=== PATIENT | male | born 1935 | race Caucasian/White ===

== ENCOUNTER 2019-03-06 09:13 | Observation (INO) | payer MEDICARE ==
[2019-03-06] MEDS ORDERED: ASPIRIN 81 MG PO STA (09:31)
[2019-03-06] MEDS ORDERED: NITROGLYCERIN OINT 1 INCH/GM PACKET TOPICAL STA (09:31)
--- NOTE | 2019-03-06 09:35 | ED ---
General Adult HPI - General Chief complaint: Chest Pain Stated complaint: Chest Pains Time Seen by Provider: 03/06/19 09:21 Source: patient, RN notes reviewed Mode of arrival: ambulatory Limitations: no limitations - History of Present Illness Initial comments: Patient is a pleasant 83-year-old male sitting to the emergency Department with complaints of this pressure. Patient had symptoms yesterday and again this morning. Discomfort was mild. Discomfort is left chest without radiation. No associated dyspnea or nausea or diaphoresis. No history of similar symptoms previously. No leg pain or swelling. - Related Data Home Medications Medication Instructions Recorded Confirmed Aspirin EC [Ecotrin Low Dose] 81 mg PO DAILY 03/06/19 03/06/19 Hydrochlorothiazide 25 mg PO DAILY 03/06/19 03/06/19 Metoprolol Tartrate [Lopressor] 50 mg PO BID 03/06/19 03/06/19 Olmesartan Medoxomil [Benicar] 40 mg PO DAILY 03/06/19 03/06/19 Omeprazole 20 mg PO DAILY 03/06/19 03/06/19 Pravastatin Sodium [Pravachol] 40 mg PO HS 03/06/19 03/06/19 Verapamil Sr [Isoptin Sr] 240 mg PO DAILY 03/06/19 03/06/19 Warfarin Sodium [Coumadin] 1.25 mg PO MOWEFR 03/06/19 03/06/19 Warfarin [Coumadin] 2.5 mg PO SUTUTHSA 03/06/19 03/06/19 sitaGLIPtin PHOS/metFORMIN HCL 1 tab PO BID 03/06/19 03/06/19 [Janumet 50-500 mg Tablet] Allergies Allergy/AdvReac Type Severity Reaction Status Date / Time No Known Allergies Allergy Verified 03/06/19 10:13 Review of Systems ROS Statement: Those systems with pertinent positive or pertinent negative responses have been documented in the HPI. ROS Other: All systems not noted in ROS Statement are negative. Constitutional: Denies: fever Eyes: Denies: eye pain ENT: Denies: ear pain Respiratory: Denies: cough, dyspnea Cardiovascular: Reports: chest pain Endocrine: Denies: fatigue Gastrointestinal: Denies: abdominal pain Genitourinary: Denies: dysuria Musculoskeletal: Denies: back pain Skin: Denies: rash Neurological: Denies: weakness Past Medical History Past Medical History: Coronary Artery Disease (CAD), Diabetes Mellitus, Hyperlipidemia, Hypertension History of Any Multi-Drug Resistant Organisms: None Reported Past Surgical History: Coronary Bypass/CABG Past Psychological History: No Psychological Hx Reported Smoking Status: Former smoker Past Alcohol Use History: Occasional Past Drug Use History: None Reported General Exam Limitations: no limitations General appearance: alert, in no apparent distress Head exam: Present: atraumatic Eye exam: Present: normal appearance, PERRL ENT exam: Present: normal oropharynx Neck exam: Present: normal inspection Respiratory exam: Present: normal lung sounds bilaterally. Absent: chest wall tenderness Cardiovascular Exam: Present: regular rate, irregular rhythm Expanded Peripheral pulses: 2+: Radial (R), Radial (L), Posterior Tibialis (R), Posterior Tibialis (L), Dorsalis Pedis (R), Dorsalis Pedis (L) GI/Abdominal exam: Present: soft. Absent: tenderness Extremities exam: Present: normal inspection. Absent: pedal edema, calf tenderness Neurological exam: Present: alert Psychiatric exam: Present: normal affect, normal mood Skin exam: Present: normal color Course Vital Signs 03/06/19 09:16 Temperature 97.5 F L Pulse Rate 56 L Respiratory 18 Rate Blood Pressure 188/84 O2 Sat by Pulse 99 Oximetry EKG Findings - EKG Comments: EKG Findings:: A. fib with rate of 76. QRS 108. QT 418. QTC 470. Left axis. Incomplete right bundle-branch block. No acute ST change. Medical Decision Making - Medical Decision Making Patient reevaluated and resting comfortably in bed. Patient and family updated on results and plan. Case was discussed in detail with Dr. Sheriff, who will admit covering for Dr. Doran. - Lab Data Result diagrams: 03/06/19 09:35 03/06/19 09:35 Lab Results 03/06/19 03/06/19 03/06/19 Range/Units 09:35 09:35 09:35 WBC 11.4 H (3.8-10.6) k/uL RBC 5.26 (4.30-5.90) m/uL Hgb 14.6 (13.0-17.5) gm/dL Hct 44.9 (39.0-53.0) % MCV 85.4 (80.0-100.0) fL MCH 27.8 (25.0-35.0) pg MCHC 32.6 (31.0-37.0) g/dL RDW 17.0 H (11.5-15.5) % Plt Count 252 (150-450) k/uL Neutrophils % 84 % Lymphocytes % 9 % Monocytes % 4 % Eosinophils % 1 % Basophils % 0 % Neutrophils # 9.6 H (1.3-7.7) k/uL Lymphocytes # 1.0 (1.0-4.8) k/uL Monocytes # 0.5 (0-1.0) k/uL Eosinophils # 0.1 (0-0.7) k/uL Basophils # 0.0 (0-0.2) k/uL Poikilocytosis Slight Anisocytosis Slight PT 39.5 H (9.0-12.0) sec INR 4.1 H (<1.2) APTT 38.7 H (22.0-30.0) sec Sodium 135 L (137-145) mmol/L Potassium 4.4 (3.5-5.1) mmol/L Chloride 99 (98-107) mmol/L Carbon Dioxide 23 (22-30) mmol/L Anion Gap 13 mmol/L BUN 22 H (9-20) mg/dL Creatinine 0.63 L (0.66-1.25) mg/dL Est GFR (CKD-EPI)AfAm >90 (>60 ml/min/1.73 sqM) Est GFR (CKD-EPI)NonAf >90 (>60 ml/min/1.73 sqM) Glucose 246 H (74-99) mg/dL Calcium 9.2 (8.4-10.2) mg/dL Magnesium 1.6 (1.6-2.3) mg/dL Total Bilirubin 1.2 (0.2-1.3) mg/dL AST 19 (17-59) U/L ALT 21 (21-72) U/L Alkaline Phosphatase 81 (38-126) U/L Creatine Kinase 24 L (55-170) U/L Troponin I (0.000-0.034) ng/mL Total Protein 7.7 (6.3-8.2) g/dL Albumin 4.3 (3.5-5.0) g/dL 03/06/19 Range/Units 09:35 WBC (3.8-10.6) k/uL RBC (4.30-5.90) m/uL Hgb (13.0-17.5) gm/dL Hct (39.0-53.0) % MCV (80.0-100.0) fL MCH (25.0-35.0) pg MCHC (31.0-37.0) g/dL RDW (11.5-15.5) % Plt Count (150-450) k/uL Neutrophils % % Lymphocytes % % Monocytes % % Eosinophils % % Basophils % % Neutrophils # (1.3-7.7) k/uL Lymphocytes # (1.0-4.8) k/uL Monocytes # (0-1.0) k/uL Eosinophils # (0-0.7) k/uL Basophils # (0-0.2) k/uL Poikilocytosis Anisocytosis PT (9.0-12.0) sec INR (<1.2) APTT (22.0-30.0) sec Sodium (137-145) mmol/L Potassium (3.5-5.1) mmol/L Chloride (98-107) mmol/L Carbon Dioxide (22-30) mmol/L Anion Gap mmol/L BUN (9-20) mg/dL Creatinine (0.66-1.25) mg/dL Est GFR (CKD-EPI)AfAm (>60 ml/min/1.73 sqM) Est GFR (CKD-EPI)NonAf (>60 ml/min/1.73 sqM) Glucose (74-99) mg/dL Calcium (8.4-10.2) mg/dL Magnesium (1.6-2.3) mg/dL Total Bilirubin (0.2-1.3) mg/dL AST (17-59) U/L ALT (21-72) U/L Alkaline Phosphatase (38-126) U/L Creatine Kinase (55-170) U/L Troponin I <0.012 (0.000-0.034) ng/mL Total Protein (6.3-8.2) g/dL Albumin (3.5-5.0) g/dL - Radiology Data Radiology results: image reviewed (Chest x-ray does show some COPD and cardiomegaly. Interstitial changes concerning for CHF. Pleural thickening.) Disposition Clinical Impression: Chest pain Disposition: ADMITTED IP TO THIS HOSP Is patient prescribed a controlled substance at d/c from ED?: No Referrals: Farrah Doran III, MD [Primary Care Provider] - 1-2 days Decision Time: 10:52
[2019-03-06 09:51] LABS: Anisocytosis Slight; Basophils % (A) 0 %; Eosinophils # (A) 0.1 k/uL (0-0.7); Eosinophils % (A) 1 %; HCT 44.9 % (39.0-53.0); HGB 14.6 gm/dL (13.0-17.5); Lymphocytes % (A) 9 %; MCH 27.8 pg (25.0-35.0); MCHC 32.6 g/dL (31.0-37.0); MCV 85.4 fL (80.0-100.0); Mean Platelet Volume 7.6; Monocytes # (A) 0.5 k/uL (0-1.0); Monocytes % (A) 4 %; Neutrophils # (A) 9.6 k/uL (1.3-7.7); Neutrophils % (A) 84 %; Platelet Count 252 k/uL (150-450); Poikilocytosis Slight; RBC 5.26 m/uL (4.30-5.90); WBC 11.4 k/uL (3.8-10.6)
[2019-03-06 10:00] LABS: INR 4.1 (<1.2); Partial Thromboplastin Time 38.7 sec (22.0-30.0); Prothrombin Time 39.5 sec (9.0-12.0)
[2019-03-06 10:01] LABS: ALT 21 U/L (21-72); AST 19 U/L (17-59); Albumin 4.3 g/dL (3.5-5.0); Alkaline Phosphatase 81 U/L (38-126); Anion Gap 13 mmol/L; Blood Urea Nitrogen 22 mg/dL (9-20); Calcium 9.2 mg/dL (8.4-10.2); Carbon Dioxide 23 mmol/L (22-30); Chloride 99 mmol/L (98-107); Creatine Kinase 24 U/L (55-170); Glucose 246 mg/dL (74-99); Magnesium 1.6 mg/dL (1.6-2.3); Potassium 4.4 mmol/L (3.5-5.1); Sodium 135 mmol/L (137-145); Total Bilirubin 1.2 mg/dL (0.2-1.3); Total Protein 7.7 g/dL (6.3-8.2)
--- NOTE | 2019-03-06 10:12 | XR ---
EXAMINATION TYPE: XR chest 2V DATE OF EXAM: 03/06/2019 COMPARISON: 11/10/2013 HISTORY: 83-year-old male with chest pain TECHNIQUE: PA and lateral views FINDINGS: Median sternotomy wires are present. Heart mildly enlarged. Hyperinflation with relative upper lung l ucencies. Mild interstitial prominence. Pleural thickening along the left lateral hemithorax. A more nodular areas present here as well. Yvonne B lines are demonstrated. Mild patchy left basilar opacity . IMPRESSION: 1. COPD and cardiomegaly. Interstitial changes are present with Yvonne B lines and pleural thickening , possible fluid along the left lateral hemithorax. Correlate for mild CHF as an etiology. 2. Follow-up after treatment to ensure clearance especially of the left lateral pleural-based thicken ing as some nodularity is also present here. If the finding persists, contrast-enhanced CT can be per formed.
[2019-03-06] MEDS ORDERED: NITROGLYCERIN SL TABS 0.4 MG TAB SUBLINGUAL PRN (10:52)
[2019-03-06] MEDS: NITROGLYCERIN OINT 1 INCH/GM PACKET TOPICAL SCH ×3 (13:04→23:24)
--- NOTE | 2019-03-06 13:25 | ECHOF ---
Referral Reason:Chest discomfort, CHF MEASUREMENTS -------- HEIGHT: 180.3 cm WEIGHT: 99.8 kg BP: RVIDd: 3.9 cm (< 3.3) IVSd: 1.4 cm (0.6 - 1.1) LVIDd: 4.5 cm (3.9 - 5.3) LVPWd: 1.6 cm (0.6 - 1.1) IVSs: 1.6 cm LVIDs: 3.0 cm LVPWs: 2.2 cm Ao Diam: 3.6 cm (2.0 - 3.7) AV Cusp: 1.7 cm (1.5 - 2.6) LA Diam: 4.6 cm (2.7 - 3.8) MV EXCURSION: 9.371 mm (> 18.000) MV EF SLOPE: 58 mm/s (70 - 150) EPSS: 1.5 cm MV E Jas: 1.46 m/s MV DecT: 214 ms MV A Jas: 0.36 m/s MV E/A Ratio: 4.11 RAP: 5.00 mmHg RVSP: 61.27 mmHg FINDINGS -------- Sinus rhythm. This was a technically difficult study with suboptimal views. The left ventricular size is normal. There is moderate concentric left ventricular hypertrophy. O verall left ventricular systolic function is normal with, an EF between 55 - 60 %. The right ventricle is mild to moderately enlarged. The left atrium is moderately dilated. The right atrium is moderately enlarged. Lumason used Aortic valve is trileaflet and is mildly thickened. There is mild aortic valve sclerosis. Peak/me an gradient across the Aortic Valve is {AV maxPG} / {AV meanPG}. The mitral valve leaflets are mildly thickened. Mild mitral annular calcification present. Mild m itral regurgitation is present. Moderate tricuspid regurgitation present. There is moderate pulmonary hypertension. The right sarah tricular systolic pressure, as measured by Doppler, is 61.27mmHg. There is no pulmonic regurgitation present. The aortic root size is normal. IVC Not well visulized. There is no pericardial effusion. CONCLUSIONS -------- 1. Sinus rhythm. 2. This was a technically difficult study with suboptimal views. 3. The left ventricular size is normal. 4. There is moderate concentric left ventricular hypertrophy. 5. Overall left ventricular systolic function is normal with, an EF between 55 - 60 %. 6. The right ventricle is mild to moderately enlarged. 7. The left atrium is moderately dilated. 8. The right atrium is moderately enlarged. 9. Lumason used 10. Aortic valve is trileaflet and is mildly thickened. 11. There is mild aortic valve sclerosis. 12. Peak/mean gradient across the Aortic Valve is {AV maxPG} / {AV meanPG}. 13. The mitral valve leaflets are mildly thickened. 14. Mild mitral annular calcification present. 15. Mild mitral regurgitation is present. 16. Moderate tricuspid regurgitation present. 17. There is moderate pulmonary hypertension. 18. The right ventricular systolic pressure, as measured by Doppler, is 61.27mmHg. 19. There is no pulmonic regurgitation present. 20. The aortic root size is normal. 21. IVC Not well visulized. 22. There is no pericardial effusion. COMPLETION MANAGER: Radha Guzmán RDCS
[2019-03-06] MEDS: VERAPAMIL SR 240 MG TABLET.ER PO SCH (15:55)
[2019-03-06] MEDS: HYDROCHLOROTHIAZIDE 25 MG TAB PO SCH (15:55)
--- NOTE | 2019-03-06 15:58 | P.HPIM ---
History of Present Illness Chief Complaint: Chest pressure Very pleasant 83-year-old gentleman with a past medical history significant for A. fib on Coumadin comes in with above-mentioned complaints. The patient says that he's been having chest pressure since yesterday. He said that he lifted window and felt chest pressure since then. He does not complain of any radiation, no shortness of breath, no cough, no abdominal pain, no nausea and vomiting, no diarrhea constipation, no tingling numbness on in the extremities, and additional rest. Patient does not complain of any fever or chills, no headache, loss of vision or blurry vision. ER course-patient's blood pressure was 202/81 temperature 97.7 pulse 74 respiration 18 satting 93%. WBC 11.4 hemoglobin 14.6 platelets 252 sodium 134 potassium 4.4 bun 22 creatinine 0.63 troponin 0.012. Patient was admitted to the hospitalist service for further evaluation and management of his chest pain. 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 History of Any Multi-Drug Resistant Organisms: None Reported Past Surgical History: Coronary Bypass/CABG, Heart Catheterization, Hernia R epair Additional Past Surgical History / Comment(s): 12/23/07 CABG 4 vessel, thoracentesis x 4 after CABG, DIGNA, EGD, colonoscopies with benign polypectomy, L leg varicose vein stripping, sinus surgery, bilateral inguinal hernia repairs, R ankle with plate/screws. Past Anesthesia/Blood Transfusion Reactions: No Reported Reaction Smoking Status: Former smoker - Past Family History Father Family Medical History: Cancer Additional Family Medical History / Comment(s): Lymphoma Mother Family Medical History: Myocardial Infarction ([place]) Additional Family Medical History / Comment(s): Mother had heart problems and a [place]. She lived to be 83 yrs old. Medications and Allergies Home Medications Medication Instructions Recorded Confirmed Type Aspirin EC [Ecotrin Low Dose] 81 mg PO DAILY 03/06/19 03/06/19 History Hydrochlorothiazide 25 mg PO DAILY 03/06/19 03/06/19 History Metoprolol Tartrate [Lopressor] 50 mg PO BID 03/06/19 03/06/19 History Olmesartan Medoxomil [Benicar] 40 mg PO DAILY 03/06/19 03/06/19 History Omeprazole 20 mg PO DAILY 03/06/19 03/06/19 History Pravastatin Sodium [Pravachol] 40 mg PO HS 03/06/19 03/06/19 History Verapamil Sr [Isoptin Sr] 240 mg PO DAILY 03/06/19 03/06/19 History Warfarin Sodium [Coumadin] 1.25 mg PO MOWEFR 03/06/19 03/06/19 History Warfarin [Coumadin] 2.5 mg PO SUTUTHSA 03/06/19 03/06/19 History sitaGLIPtin PHOS/metFORMIN HCL 1 tab PO BID 03/06/19 03/06/19 History [Janumet 50-500 mg Tablet] Allergies Allergy/AdvReac Type Severity Reaction Status Date / Time No Known Allergies Allergy Verified 03/06/19 10:13 Physical Exam Vitals: Vital Signs Temp Pulse Pulse Resp BP BP Pulse Ox 03/06/19 14:47 97.7 F 70 18 202/81 93 L 03/06/19 13:55 74 20 182/90 96 03/06/19 13:04 64 20 183/52 95 03/06/19 12:00 20 03/06/19 11:57 87 20 186/89 98 03/06/19 09:16 97.5 F L 56 L 18 188/84 99 Intake and Output 03/06/19 03/06/19 03/06/19 06:59 14:59 22:59 Other: Voiding Method Toilet # Voids 1 Weight 99.79 kg On exam, alert and oriented x3. HEENT: Conjunctivae normal. eyes normal. NECK: No JVD. No thyroid enlargement. No LNs CARDIOVASCULAR: S1-S2 positive RESPIRATION: Breath sounds diminished in the bases. No rhonchi or crackles. No bronchial breathing. ABDOMEN: Soft, nontender . No guarding. no masses palpable. No ascites, No hepatosplenomegaly.Bowel sounds heard. LEGS: No edema. no swelling NERVOUS SYSTEM: Cranial N 2-12 grossly normal. Moves all 4 limbs. No focal deficits. No sensory deficit. No signs of cerebellar dysfucntion. Skin: no ulcer no rash Results CBC & Chem 7: 03/06/19 09:35 03/06/19 09:35 Labs: Abnormal Lab Results - Last 24 Hours (Table) 03/06/19 03/06/19 03/06/19 Range/Units 09:35 09:35 09:35 WBC 11.4 H (3.8-10.6) k/uL RDW 17.0 H (11.5-15.5) % Neutrophils # 9.6 H (1.3-7.7) k/uL PT 39.5 H (9.0-12.0) sec INR 4.1 H (<1.2) APTT 38.7 H (22.0-30.0) sec Sodium 135 L (137-145) mmol/L BUN 22 H (9-20) mg/dL Creatinine 0.63 L (0.66-1.25) mg/dL Glucose 246 H (74-99) mg/dL Creatine Kinase 24 L (55-170) U/L Thrombosis Risk Factor Assmnt - Choose All That Apply Any of the Below Risk Factors Present?: Yes Each Factor Represents 1 point: Obesity (BMI >25) Other Risk Factors: Yes Each Risk Factor Represents 3 Points: Age 75 years or older Other congenital or acquired thrombophilia - If yes, enter type in comment: No Thrombosis Risk Factor Assessment Total Risk Factor Score: 4 Thrombosis Risk Factor Assessment Level: Moderate Risk Assessment and Plan Assessment: - Chest pain need to rule out the cause - History of CAD status post CABG - Accelerated hypertension - A. fib on Coumadin - History of hypertension - History of hyperlipidemia - History of diabetes plan - Patient is admitted to observation - We'll monitor troponin level - Cardiology is consulted - We'll resume patient's home medications - Patient blood pressure was elevated on in the ER. We'll give him his medication and see how he does - DVT and GI prophylaxis - We'll order for lab work in the morning - Patient is in observation - Patient wants to be full code
[2019-03-06 17:00] LABS: Glucose,Whole Blood 165 mg/dL (75-99)
[2019-03-06] MEDS: INSULIN ASPART (NovoLOG) 100 UNIT/ML VIAL SQ SCH ×2 (17:16→21:09)
[2019-03-06 20:51] LABS: Glucose,Whole Blood 172 mg/dL (75-99)
[2019-03-06] MEDS: PRAVASTATIN SODIUM 40 MG TAB PO SCH (21:08)
[2019-03-06] MEDS: METOPROLOL TARTRATE 50 MG TAB PO SCH (21:09)
[2019-03-07] MEDS: NITROGLYCERIN OINT 1 INCH/GM PACKET TOPICAL SCH (03:56)
[2019-03-07 06:15] LABS: Anisocytosis Slight; HCT 42.7 % (39.0-53.0); HGB 13.9 gm/dL (13.0-17.5); MCH 27.5 pg (25.0-35.0); MCHC 32.4 g/dL (31.0-37.0); MCV 84.7 fL (80.0-100.0); Mean Platelet Volume 7.7; Platelet Count 210 k/uL (150-450); Poikilocytosis Slight; RBC 5.04 m/uL (4.30-5.90); RDW 16.4 % (11.5-15.5); WBC 8.2 k/uL (3.8-10.6)
[2019-03-07 06:23] LABS: Calcium 9.6 mg/dL (8.4-10.2)
[2019-03-07 06:34] LABS: Glucose,Whole Blood 180 mg/dL (75-99)
[2019-03-07] MEDS: METOPROLOL TARTRATE 50 MG TAB PO SCH (08:12)
[2019-03-07] MEDS: INSULIN ASPART (NovoLOG) 100 UNIT/ML VIAL SQ SCH ×4 (08:13→21:33)
[2019-03-07] MEDS: VERAPAMIL SR 240 MG TABLET.ER PO SCH (08:13)
[2019-03-07] MEDS: HYDROCHLOROTHIAZIDE 25 MG TAB PO SCH (08:13)
[2019-03-07] MEDS: ASPIRIN 81 MG PO SCH (08:13)
[2019-03-07] MEDS: LOSARTAN 50 MG TAB PO SCH (08:13)
[2019-03-07] MEDS: PANTOPRAZOLE 40 MG TABLET PO SCH (08:13)
[2019-03-07] MEDS ORDERED: FUROSEMIDE 10 MG/ML 2 ML VIAL IV STA (08:56)
[2019-03-07] MEDS ORDERED: ASPIRIN 325 MG TAB PO SCH (09:00)
--- NOTE | 2019-03-07 10:11 | P.PN ---
Subjective Very pleasant 83-year-old gentleman comes in with complaints of chest pressure. His chest pressure is gone now. Blood pressure elevated while in observation. Cardiology on board. Following the patient. On 03/07/2019 Patient says that his chest pain is no more. He does not complain of any shortness of breath or cough There is no evidence of any swelling Patient blood pressure remains to be high Objective - Vital Signs Vital signs: Vital Signs Temp 97.6 F 03/07/19 07:00 Pulse 60 03/07/19 09:32 Resp 18 03/07/19 07:00 BP 160/80 03/07/19 09:32 Pulse Ox 98 03/07/19 09:32 Intake & Output 03/06/19 03/07/19 03/07/19 18:59 06:59 18:59 Intake Total 300 Balance 300 Weight 99.79 kg Intake: Other 300 Other: Voiding Method Toilet Toilet # Voids 1 1 - Exam On exam, alert and oriented x3. HEENT: Conjunctivae normal. eyes normal. NECK: No JVD. No thyroid enlargement. No LNs CARDIOVASCULAR: S1, S2 positive RESPIRATION: Breath sounds diminished in the bases. No rhonchi or crackles. No bronchial breathing. ABDOMEN: Soft, nontender . No guarding. no masses palpable. No ascites, No hepatosplenomegaly.Bowel sounds heard. LEGS: No edema. no swelling NERVOUS SYSTEM: Cranial N 2-12 grossly normal. Moves all 4 limbs. No focal deficits. No sensory deficit. No signs of cerebellar dysfucntion. Skin: no ulcer no rash - Labs CBC & Chem 7: 03/07/19 05:57 03/07/19 05:57 Labs: Abnormal Lab Results - Last 24 Hours (Table) 03/06/19 03/06/19 03/07/19 Range/Units 16:31 20:23 05:57 RDW (11.5-15.5) % Sodium 136 L (137-145) mmol/L Chloride 97 L (98-107) mmol/L Carbon Dioxide 31 H (22-30) mmol/L BUN 27 H (9-20) mg/dL Glucose 177 H (74-99) mg/dL POC Glucose (mg/dL) 165 H 172 H (75-99) mg/dL 03/07/19 03/07/19 Range/Units 05:57 06:32 RDW 16.4 H (11.5-15.5) % Sodium (137-145) mmol/L Chloride (98-107) mmol/L Carbon Dioxide (22-30) mmol/L BUN (9-20) mg/dL Glucose (74-99) mg/dL POC Glucose (mg/dL) 180 H (75-99) mg/dL Assessment and Plan Assessment: - Chest pain need to rule out the cause - History of CAD status post CABG - Accelerated hypertension - A. fib on Coumadin - History of hypertension - History of hyperlipidemia - History of diabetes plan - We'll give next dose of Lasix this morning. Chest x-ray done yesterday showed left pleural effusion and also showed concerns for nodularity. This suggested to follow-up on the pleural effusion. If the nodularity still persists patient would need to be followed up with a CAT scan. So the plan is to give him Lasix for a day. We'll repeat the chest x-ray tomorrow. If the chest x-ray shows shows nodularity patient might need a computed tomography scan either inpatient or outpatient. If his blood pressures is under control, he might be discharged and he can follow up with his primary care doctor for a computed tomography scan as an outpatient. - We'll continue medications for now. Cozaar increased by cardiology - Patient is admitted to observation - We'll continue to monitor Time with Patient: Greater than 30
[2019-03-07 10:37] LABS: INR 2.8 (<1.2); Prothrombin Time 27.2 sec (9.0-12.0)
[2019-03-07 11:45] LABS: Glucose,Whole Blood 248 mg/dL (75-99)
--- NOTE | 2019-03-07 13:04 | P.CRDCN ---
History of Present Illness History of present illness: This is a pleasant 83 year old male past medical history significant for coronary artery disease s/p bypass grafting in 2007 with a CAMACHO to LAD, SVG to diagonal, SVG to PLV and SVG to PDA branch of the RCA, chronic persistent atrial fibrillation on termite control service representative anti-coagulation, hypertension, dyslipidemia and diabetes mellitus. He follows with Dr. Hines in the office. We have been asked to see him in consultation for chest pain. He states for the last 2 days intermittently he has noticed a pain in the chest in the precordial region that feels like a pin prick sensation that improves when he presses his finger on the area. He was doing some window work changing out the storm windows at his home just before he felt this for the first time. He felt like he pulled a muscle. Th ere was no radiation to the arm, back, neck or jaw. He denies associated shortness of breath, dizziness, nausea, vomiting, palpitations or diaphoresis. The patient and his were scheduled to head [place] for however due to his history he wanted to be evaluated prior to making that trip. He is seen and examined resting comfortably in bed with his and daughter at the bedside. He denies any further symptoms of chest discomfort. Since arriving in the emergency department his blood pressure has been quite elevated, 197/75, 202/81. Telemetry tracings reviewed and reveal he is having significant bradycardia night while sleeping. EKG reveals atrial fibrillation heart rate of 76, incomplete right bundle branch block and nonspecific ST abnormalities in the precordial leads. Chest x-ray reveals COPD and cardiomegaly, interstitial changes present with curly B lines and pleural thickening with possible fluid accumulation along the left lateral hemithorax. Echocardiogram obtained in the emergency department reveals moderate concentric left ventricular hypertrophy, preserved left ventricular systolic function with ejection fraction 55-60%, mild aortic valve sclerosis, mild mitral regurgitation, moderate tricuspid regurgitation and moderate pulmonary hypertension with an RVSP of 61 mmHg Laboratory data reviewed, WBC on admission 11.4 repeat today 8.2, hemoglobin 13.9, platelets 210, INR 2.8, cardiac enzymes negative 3, sodium 136, potassium 4.0, creatinine 0.95, LDL 45, HDL 44, gently proBNP 966, magnesium 1.6. Current cardiac medications include aspirin 81 mg daily, hydrochlorothiazide 25 mg daily, Lopressor 50 mg twice a day, olmesartan 40 mg daily, pravastatin 40 mg daily, verapamil 240 mg daily and Coumadin. Most recent stress test performed in the office was a nuclear perfusion study revealed no evidence of reversible cardiac ischemia. At the time of my exam: CONSTITUTIONAL: Denies fever. Denies chills. EYES: Denies blurred vision. Denies vision changes. Denies eye pain. EARS, NOSE, MOUTH & THROAT: Denies headache. Denies sore throat. Denies ear pa in. CARDIOVASCULAR: Denies chest pain. Denies shortness of breath. Denies orthopnea. Denies PND. Denies palpitations. RESPIRATORY: Denies cough. GASTROINTESTINAL: Denies abdominal pain. Denies diarrhea. Denies constipation. Denies nausea. Denies vomiting. MUSCULOSKELETAL: Denies myalgias. INTEGUMENTARY: Denies pruitis. Denies rash. NEUROLOGIC: Denies numbness. Denies tingling. Denies weakness. PSYCHIATRIC: Denies anxiety. Denies depression. ENDOCRINE: Denies fatigue. Denies weight change. Denies polydipsia. Denies polyurina. GENITOURINARY: Denies burning, hematuria or urgency with micturation. HEMATOLOGIC: Denies history of anemia. Denies bleeding. Blood pressure 197/75 heart rate 68 afebrile maintaining oxygen saturation on room air GENERAL: This is a 83-year-old male in no apparent distress at the time of my examination. HEENT: Head is atraumatic, normocephalic. Pupils are equal, round. Sclerae anicteric. Conjunctivae are clear. Mucous membranes of the mouth are moist. Neck is supple. There is no jugular venous distention. Bilateral carotid bruit is heard, left greater than right. LUNGS: Clear to auscultation no wheezes, rales or rhonchi. No chest wall tenderness is noted on palpation or with deep breathing. HEART: Irregular rate and rhythm with systolic ejection murmur at the base, no rubs or gallops. S1 and S2 heard. ABDOMEN: Soft, nontender. Bowel sounds are heard. No organomegaly noted. EXTREMITIES: No evidence of peripheral edema and no calf tenderness noted. VASCULAR: Radial and dorsalis pedis pulses palpated, no evidence of clubbing. NEUROLOGIC: Patient is awake, alert and oriented x3. ASSESSMENT Chest pain, atypical for angina. An acute coronary event has been ruled out. Most likely related to musckuloskeletal strain. Recommend outpatient stress testing with Dr. Hines if reoccurrence of chest pain. Hypertension, uncontrolled History of coronary artery disease status post bypass grafting Chronic persistent atrial fibrillation on long-term anticoagulation Dyslipidemia Diabetes mellitus Bradycardia at night, asymptomatic PLAN An acute coronary event has been ruled out. Echocardiogram reviewed. Overall stable with no suggestion of unstable angina. Outpatient stress testing with Dr. Hines. Discontinue verapamil and initiate on amlodipine 10 mg daily. Increase lopressor to 75 mg BID. Initiate on hydralazine 25 mg BID, this can be increased as needed for ongoing elevated blood pressures. Continue coumadin, aspirin, hydrocholorthiazide and pravastatin as previously ordered. Clinically he is euvolemic on exam despite chest xray findings. Repeat chest xray in the am. Thank you kindly for this consultation. Nurse Practitioner note has been reviewed, I agree with a documented findings and plan of care. Patient was seen and examined. 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 History of Any Multi-Drug Resistant Organisms: None Reported Past Surgical History: Coronary Bypass/CABG, Heart Catheterization, Hernia Repair Additional Past Surgical History / Comment(s): 12/23/07 CABG 4 vessel, thorace ntesis x 4 after CABG, DIGNA, EGD, colonoscopies with benign polypectomy, L leg varicose vein stripping, sinus surgery, bilateral inguinal hernia repairs, R ankle with plate/screws. Past Anesthesia/Blood Transfusion Reactions: No Reported Reaction Smoking Status: Former smoker - Past Family History Father Family Medical History: Cancer Additional Family Medical History / Comment(s): Lymphoma Mother Family Medical History: Myocardial Infarction (OR) Additional Family Medical History / Comment(s): Mother had heart problems and a OR. She lived to be 83 yrs old. Medications and Allergies Home Medications Medication Instructions Recorded Confirmed Type Aspirin EC [Ecotrin Low Dose] 81 mg PO DAILY 03/06/19 03/06/19 History Hydrochlorothiazide 25 mg PO DAILY 03/06/19 03/06/19 History Metoprolol Tartrate [Lopressor] 50 mg PO BID 03/06/19 03/06/19 History Olmesartan Medoxomil [Benicar] 40 mg PO DAILY 03/06/19 03/06/19 History Omeprazole 20 mg PO DAILY 03/06/19 03/06/19 History Pravastatin Sodium [Pravachol] 40 mg PO HS 03/06/19 03/06/19 History Verapamil Sr [Isoptin Sr] 240 mg PO DAILY 03/06/19 03/06/19 History Warfarin Sodium [Coumadin] 1.25 mg PO MOWEFR 03/06/19 03/06/19 History Warfarin [Coumadin] 2.5 mg PO SUTUTHSA 03/06/19 03/06/19 History sitaGLIPtin PHOS/metFORMIN HCL 1 tab PO BID 03/06/19 03/06/19 History [Janumet 50-500 mg Tablet] Allergies Allergy/AdvReac Type Severity Reaction Status Date / Time No Known Allergies Allergy Verified 03/06/19 10:13 Physical Exam Vitals: Vital Signs Temp Pulse Pulse Pulse Resp BP BP 03/07/19 11:15 97.7 F 63 18 03/07/19 09:32 60 160/80 03/07/19 08:18 197/75 03/07/19 07:00 97.6 F 57 L 18 03/07/19 03:54 98.2 F 50 L 18 142/62 03/07/19 03:31 16 03/06/19 23:55 98.2 F 50 L 16 119/59 03/06/19 23:21 16 03/06/19 20:00 16 03/06/19 19:37 97.8 F 53 L 16 166/71 03/06/19 16:00 70 18 03/06/19 14:47 97.7 F 70 18 202/81 03/06/19 13:55 74 20 182/90 03/06/19 13:04 64 20 183/52 BP Pulse Ox 03/07/19 11:15 149/60 93 L 03/07/19 09:32 98 03/07/19 08:18 92 L 03/07/19 07:00 208/78 92 L 03/07/19 03:54 92 L 03/07/19 03:31 03/06/19 23:55 91 L 03/06/19 23:21 03/06/19 20:00 03/06/19 19:37 91 L 03/06/19 16:00 03/06/19 14:47 93 L 03/06/19 13:55 96 03/06/19 13:04 95 Intake and Output 03/06/19 03/07/19 03/07/19 22:59 06:59 14:59 Intake Total 300 200 Balance 300 200 Intake: Other 300 200 Other: Voiding Method Toilet Toilet Toilet # Voids 1 Results 03/07/19 05:57 03/07/19 05:57 Cardiac Enzymes 03/06/19 03/06/19 Range/Units 16:02 21:20 Troponin I <0.012 <0.012 (0.000-0.034) ng/mL Coagulation 03/07/19 Range/Units 09:43 PT 27.2 H (9.0-12.0) sec Lipids 03/07/19 Range/Units 05:57 Triglycerides 107 (<150) mg/dL Cholesterol 110 (<200) mg/dL HDL Cholesterol 44 (40-60) mg/dL CBC 03/07/19 Range/Units 05:57 WBC 8.2 (3.8-10.6) k/uL RBC 5.04 (4.30-5.90) m/uL Hgb 13.9 (13.0-17.5) gm/dL Hct 42.7 (39.0-53.0) % Plt Count 210 (150-450) k/uL Comprehensive Metabolic Panel 03/07/19 Range/Units 05:57 Sodium 136 L (137-145) mmol/L Potassium 4.0 (3.5-5.1) mmol/L Chloride 97 L (98-107) mmol/L Carbon Dioxide 31 H (22-30) mmol/L BUN 27 H (9-20) mg/dL Creatinine 0.95 (0.66-1.25) mg/dL Glucose 177 H (74-99) mg/dL Calcium 9.6 (8.4-10.2) mg/dL Current Medications Generic Name Dose Route Start Last Admin Trade Name Freq PRN Reason Stop Dose Admin Amlodipine Besylate 10 mg 03/07/19 21:00 Norvasc PO HS YAEL Aspirin 81 mg 03/07/19 09:00 03/07/19 08:13 Aspirin PO 81 mg DAILY YAEL Administration Hydralazine HCl 25 mg 03/07/19 21:00 Apresoline PO BID [facility] Hydrochlorothiazide 25 mg 03/06/19 15:15 03/07/19 08:13 Hydrodiuril PO 25 mg DAILY [facility] Administration Insulin Aspart 0 unit 03/06/19 17:30 03/07/19 08:13 Novolog SQ 2 unit ACHS [facility] Administration Protocol Losartan Potassium 150 mg 03/07/19 09:00 03/07/19 08:13 Cozaar PO 150 mg DAILY [facility] Administration Metoprolol Tartrate 75 mg 03/07/19 21:00 Lopressor PO BID [facility] Nitroglycerin 0.4 mg 03/06/19 10:52 Nitrostat SUBLINGUAL Q5M PRN Chest Pain Pantoprazole Sodium 40 mg 03/07/19 07:30 03/07/19 08:13 Protonix PO 40 mg [id number] [facility] Administration Pravastatin Sodium 40 mg 03/06/19 21:00 03/06/19 21:08 Pravachol PO 40 mg HS [facility] Administration Warfarin Sodium 2.5 mg 03/08/19 18:00 Coumadin PO SUTUTHSA [facility] Warfarin Sodium 1.25 mg 03/07/19 18:00 Coumadin PO MOWEFR [facility] Intake and Output 03/06/19 03/07/19 03/07/19 22:59 06:59 14:59 Intake Total 300 200 Balance 300 200 Intake: Other 300 200 Other: Voiding Method Toilet Toilet Toilet # Voids 1 03/07/19 05:57 03/07/19 05:57
[2019-03-07 16:56] LABS: Glucose,Whole Blood 183 mg/dL (75-99)
[2019-03-07] MEDS ORDERED: WARFARIN 1.25 MG TAB PO SCH (18:00)
[2019-03-07] MEDS ORDERED: amLODIPine 10 MG TAB PO SCH (21:00)
[2019-03-07 21:04] LABS: Glucose,Whole Blood 256 mg/dL (75-99)
[2019-03-07] MEDS: PRAVASTATIN SODIUM 40 MG TAB PO SCH (21:33)
[2019-03-07] MEDS: hydrALAZINE HCL 25 MG TAB PO SCH (21:33)
[2019-03-07] MEDS: METOPROLOL TARTRATE 25 MG TAB PO SCH (21:33)
[2019-03-08 06:22] LABS: INR 2.4 (<1.2); Prothrombin Time 23.1 sec (9.0-12.0)
[2019-03-08 06:59] LABS: Glucose,Whole Blood 177 mg/dL (75-99)
--- NOTE | 2019-03-08 08:40 | PN ---
PROGRESS NOTE Mr. Kincaid is an 83-year-old male who follows on a regular basis with Dr. Hines, has a history of chronic persistent atrial fibrillation, history of coronary artery disease status post coronary artery bypass grafting who presented with symptoms of chest discomfort. He has feeling well since his admission. He has no further symptoms of chest pain. He has been ambulating without any difficulty. He denies any dizziness or palpitation. He denies any nausea. He continues to be at this time on amlodipine 10 mg daily, aspirin 81 mg daily, hydralazine 25 mg twice a day, hydrochlorothiazide 25 mg daily, insulin, losartan 150 mg daily, metoprolol tartrate 75 mg twice a day, Protonix, pravastatin, and Coumadin. PHYSICAL EXAMINATION: Blood pressure 132/70 with a heart in 50s. HEAD: Normocephalic. Eyes sclerae anicteric. NECK: Good upstroke. No jugular venous distention. CARDIOVASCULAR: Heart irregularly irregular S1, S2. No S3. No rub. No gallop. ABDOMEN: Soft, nontender. Positive bowel sounds. No organomegaly. EXTREMITIES: No edema. Intact distal pulses. LAB DATA: INR of 2.4. IMPRESSION: 1. Chest discomfort atypical for ischemic heart disease probably noncardiac. 2. Status post coronary artery bypass grafting. 3. Chronic persistent atrial fibrillation. RECOMMENDATIONS: Patient underwent an echocardiogram yesterday that revealed a preserved systolic function with moderate tricuspid regurgitation, mild mitral regurgitation. From the cardiac standpoint, he should be able to be discharged home today and follow as an outpatient with Dr. Hines. MMODL / IJN: [id number] /
[2019-03-08] MEDS: hydrALAZINE HCL 25 MG TAB PO SCH (09:15)
[2019-03-08] MEDS: LOSARTAN 50 MG TAB PO SCH (09:16)
[2019-03-08] MEDS: ASPIRIN 81 MG PO SCH (09:16)
[2019-03-08] MEDS: PANTOPRAZOLE 40 MG TABLET PO SCH (09:16)
[2019-03-08] MEDS: METOPROLOL TARTRATE 25 MG TAB PO SCH (09:17)
[2019-03-08] MEDS: INSULIN ASPART (NovoLOG) 100 UNIT/ML VIAL SQ SCH ×2 (09:18→12:08)
[2019-03-08] MEDS: HYDROCHLOROTHIAZIDE 25 MG TAB PO SCH (09:18)
--- NOTE | 2019-03-08 10:17 | XR ---
EXAMINATION TYPE: XR chest 2V DATE OF EXAM: 03/08/2019 HISTORY: Left pleural effusion. REFERENCE: Previous study dated 03/06/2019. FINDINGS: There has been a midline sternotomy. The lungs are overinflated. The heart is mildly enlarged. Interstitial change has improved. There con tinues be pleural thickening present on the left. I could not exclude a small left effusion. IMPRESSION: 1. COPD. 2. CARDIOMEGALY. 3. IMPROVING CHANGES OF HEART FAILURE. 4. PERSISTENT PLEURAL THICKENING ON THE LEFT.
[2019-03-08 11:40] LABS: Glucose,Whole Blood 203 mg/dL (75-99)
[2019-03-08 12:48] VITALS: RESP 18
[2019-03-08 16:27] VITALS: BP 178/73; PULSE 59; TEMP 97.6
[2019-03-08 16:46] LABS: Glucose,Whole Blood 176 mg/dL (75-99)
--- NOTE | 2019-03-08 16:47 | P.DS ---
Providers Date of admission: 03/06/19 10:52 Attending physician: Rashid Canchola MD Consults: 03/06/19 10:52 Consult Physician Urgent Consulting Provider: Alec Leroy Consult Reason/Comments: cp, eval for chf Do you want consulting provider notified?: Yes Primary care physician: Farrah Doran [facility] Course: Patient was admitted for chest pain and ruled out acute current syndromes patient chest pain, patient's chest pain was muscular skeletal. Patient was evaluated by cardiology that cleared for discharge. Multiple medication changes were made. Patient blood pressure is high because of which a patient was started on amlodipine as well as hydralazine, patient will be discharged on amlodipine not hydralazine as multiple medication changes at the same time can lead to hypotension which can lead to stroke or acute renal failure. Patient has elevated INR on admission and patient is taking 2.5 mg 4 days a week and 1.25 mg 3 days in a week. Patient most probably will need 1.5 mg daily patient will be discharged on 1.5 mg of Coumadin with INR check on Sunday when he sees Dr. Doran in his clinic. Patient's verapamil was discontinued and patient is on beta aníbal dose of which was increased to 75 mg. Patient has a pleural thickening for which patient will need outpatient follow- up per CAT scan patient will be referred to Dr. Pablo as an outpatient. PHYSICAL EXAMINATION: GENERAL: The patient is alert and oriented x3, not in any acute distress. Well developed, well nourished. HEENT: Pupils are round and equally reacting to light. EOMI. No scleral icterus. No conjunctival pallor. Normocephalic, atraumatic. No pharyngeal erythema. No thyromegaly. CARDIOVASCULAR: S1 and S2 present. No murmurs, rubs, or gallops. PULMONARY: Chest is clear to auscultation, no wheezing or crackles. ABDOMEN: Soft, nontender, nondistended, normoactive bowel sounds. No palpable organomegaly. MUSCULOSKELETAL: No joint swelling or deformity. EXTREMITIES: No cyanosis, clubbing, or pedal edema. NEUROLOGICAL: Gross neurological examination did not reveal any focal deficits. SKIN: No rashes. Please refer to dictation progress note from Dr. Canchola for further details of hospitalization course and other medical problems that were addressed during this hospitalization Plan - Discharge Summary Discharge Rx Participant: No New Discharge Prescriptions: New Warfarin [Coumadin] 1.5 mg PO DAILY #30 dose Metoprolol Tartrate [Lopressor] 75 mg PO BID #60 tab amLODIPine [Norvasc] 10 mg PO HS #30 tab Continue Pravastatin Sodium [Pravachol] 40 mg PO HS Omeprazole 20 mg PO DAILY Olmesartan Medoxomil [Benicar] 40 mg PO DAILY Hydrochlorothiazide 25 mg PO DAILY sitaGLIPtin PHOS/metFORMIN HCL [Janumet 50-500 mg Tablet] 1 tab PO BID Aspirin EC [Ecotrin Low Dose] 81 mg PO DAILY Discontinued Warfarin [Coumadin] 2.5 mg PO SUTUTHSA Verapamil Sr [Isoptin Sr] 240 mg PO DAILY Metoprolol Tartrate [Lopressor] 50 mg PO BID Warfarin Sodium [Coumadin] 1.25 mg PO MOWEFR Discharge Medication List Aspirin EC [Ecotrin Low Dose] 81 mg PO DAILY 03/06/19 [History] Hydrochlorothiazide 25 mg PO DAILY 03/06/19 [History] Olmesartan Medoxomil [Benicar] 40 mg PO DAILY 03/06/19 [History] Omeprazole 20 mg PO DAILY 03/06/19 [History] Pravastatin Sodium [Pravachol] 40 mg PO HS 03/06/19 [History] sitaGLIPtin PHOS/metFORMIN HCL [Janumet 50-500 mg Tablet] 1 tab PO BID 03/06/19 [History] Metoprolol Tartrate [Lopressor] 75 mg PO BID #60 tab 03/08/19 [Rx] Warfarin [Coumadin] 1.5 mg PO DAILY #30 dose 03/08/19 [Rx] amLODIPine [Norvasc] 10 mg PO HS #30 tab 03/08/19 [Rx] Follow up Appointment(s)/Referral(s): Angy Hines MD [STAFF PHYSICIAN] - 03/14/19 3:15 pm Farrah Doran III, MD [Primary Care Provider] - 3 Days Dashawn Da Silva MD [STAFF PHYSICIAN] - 1 Week Discharge Disposition: HOME SELF-CARE
[2019-03-08] MEDS ORDERED: WARFARIN 2.5 MG TAB PO SCH (18:00)
== END 2019-03-08 17:10 | disposition home or self-care (01) ==
LOC: EC 09:13 → 1SOBS 10:52
PROVIDERS: ADMIT Internal Medicine; ATTEND Internal Medicine
DX: R07.89 Other chest pain (principal); I11.9 Hypertensive heart disease without heart failure; I45.10 Unspecified right bundle-branch block; I27.20 Pulmonary hypertension, unspecified; R79.1 Abnormal coagulation profile; R00.1 Bradycardia, unspecified; I48.2 Chronic atrial fibrillation; I48.1 Persistent atrial fibrillation; J90 Pleural effusion, not elsewhere classified; I25.10 Atherosclerotic heart disease of native coronary artery without angina pectoris; E11.9 Type 2 diabetes mellitus without complications; E78.5 Hyperlipidemia, unspecified; I08.3 Combined rheumatic disorders of mitral, aortic and tricuspid valves; J44.9 Chronic obstructive pulmonary disease, unspecified; R13.10 Dysphagia, unspecified; M54.41 Lumbago with sciatica, right side; H93.19 Tinnitus, unspecified ear; E66.9 Obesity, unspecified; Z68.31 Body mass index [BMI] 31.0-31.9, adult; Z79.01 Long term (current) use of anticoagulants; Z79.82 Long term (current) use of aspirin; Z79.84 Long term (current) use of oral hypoglycemic drugs; Z79.899 Other long term (current) drug therapy; Z95.1 Presence of aortocoronary bypass graft; Z87.891 Personal history of nicotine dependence; Z80.7 Family history of other malignant neoplasms of lymphoid, hematopoietic and related tissues; Z82.49 Family history of ischemic heart disease and other diseases of the circulatory system
CPT/HCPCS: 96374; 99285; 36415; 93005; 83880; 80061; 80053; 80048; 82550; 83735; 84484; 85025; 85027; 85610 ×3; 85730; 71046 ×2; G0378 ×3; C8929; J1940; Q9950; 93306

== ENCOUNTER → 2019-03-17 | Outpatient (CLI) | payer MEDICARE ==
[2019-03-17 17:30] LABS: Folate, Serum 11.2 ng/mL
== END ==
LOC: LABWHC1 08:36
PROVIDERS: ATTEND Internal Medicine Interventional Cardiology
DX: I25.10 Atherosclerotic heart disease of native coronary artery without angina pectoris (principal)
CPT/HCPCS: 36415; 82607; 82746; 82747; 84443

== ENCOUNTER → 2019-05-19 | Outpatient (CLI) | payer MEDICARE ==
[2019-05-19 18:11] LABS: African American GFR (CKD) 90.6 (60.0-200.0); Anion Gap 7.1 mmol/L (4.00-12.00); BUN/Creat Ratio 33.33 Ratio (12.00-20.00); Carbon Dioxide 31.9 mmol/L (21.6-31.8); Potassium 4.8 mmol/L (3.5-5.5)
== END | disposition home or self-care (01) ==
LOC: LABWHC1 12:46
PROVIDERS: ATTEND Family Medicine
DX: R41.3 Other amnesia (principal)
CPT/HCPCS: 36415; 80048

== ENCOUNTER → 2019-05-19 | Outpatient (CLI) | payer MEDICARE ==
--- NOTE | 2019-05-19 15:44 | CT ---
EXAMINATION TYPE: CT brain wo con DATE OF EXAM: 05/19/2019 COMPARISON: None INDICATION: Memory loss DLP: 862.7 mGycm, Automated exposure control for dose reduction was used. CONTRAST: None CT of the brain is performed utilizing 3 mm thick sections through the posterior fossa and 3 mm thick sections through the remaining calvarium. Study is performed within 24 hours of arrival to the hosp [facility]. No abnormal hyperdensity is present to suggest an acute intracranial hemorrhage. No mass lesion is evident. No acute infarcts are evident. Ventricles and sulci are appropriate for the patient age. There is a large retention cyst within the right medial frontal sinus. Remaining paranasal sinuses ar e clear. Prior uncinectomies and ethmoidectomies been performed. IMPRESSIONS: 1. Periventricular white matter hypodensity, likely on the basis of chronic white matter ischemic c hanges. 2. No acute intracranial process.
== END | disposition home or self-care (01) ==
LOC: RADCTMAIN 12:00
PROVIDERS: ATTEND Family Medicine
DX: R90.89 Other abnormal findings on diagnostic imaging of central nervous system (principal); R41.3 Other amnesia
CPT/HCPCS: 70450

== ENCOUNTER 2021-09-22 08:39 | Inpatient (IN) | payer MEDICARE ==
[2021-09-22] MEDS ORDERED: SODIUM CHLORIDE 0.9% 1,000 ML IV STA (09:27)
--- NOTE | 2021-09-22 09:32 | ED ---
General Adult HPI - General Chief complaint: Weakness Stated complaint: Blood in urine, weakness Time Seen by Provider: 09/22/21 09:00 Source: patient, RN notes reviewed, old records reviewed Mode of arrival: wheelchair Limitations: no limitations - History of Present Illness Initial comments: This is an 85-year-old male who presents emergency Department stating that he has blood pressure. Patient states he had a urinary tract infection about 10 days ago was treated with antibiotics. Patient states he woke up and had quite a bit of blood in his urine. Patient denies any belly pain patient denies any chest pain or difficulty breathing. Patient denies any fever chills. Family states the patient has gotten significantly weaker over the last 2 weeks. Patient had to be helped to get into the car which is very unusual for him. According to family he does not eat or drink well. - Related Data Home Medications Medication Instructions Recorded Confirmed Aspirin EC [Ecotrin Low Dose] 81 mg PO DAILY 03/06/19 09/22/21 Olmesartan Medoxomil [Benicar] 40 mg PO DAILY 03/06/19 09/22/21 Omeprazole 20 mg PO DAILY 03/06/19 09/22/21 Pravastatin Sodium [Pravachol] 40 mg PO HS 03/06/19 09/22/21 hydroCHLOROthiazide 25 mg PO DAILY 03/06/19 09/22/21 sitaGLIPtin PHOS/metFORMIN HCL 1 tab PO BID 03/06/19 09/22/21 [Janumet 50-500 mg Tablet] Cholecalciferol [Vitamin D3 (25 25 mcg PO DAILY 09/22/21 09/22/21 Mcg = 1000 Iu)] Empagliflozin [Jardiance] 10 mg PO HS 09/22/21 09/22/21 Verapamil Sr [Isoptin Sr] 180 mg PO HS 09/22/21 09/22/21 Warfarin [Coumadin] 1.5 mg PO HS 09/22/21 09/22/21 Previous Rx's Medication Instructions Recorded Metoprolol Tartrate [Lopressor] 75 mg PO BID #60 tab 03/08/19 Allergies Allergy/AdvReac Type Severity Reaction Status Date / Time No Known Allergies Allergy Verified 09/22/21 11:27 Review of Systems ROS Statement: Those systems with pertinent positive or pertinent negative responses have been documented in the HPI. ROS Other: All systems not noted in ROS Statement are negative. 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 Past Anesthesia/Blood Transfusion Reactions: No Reported Reaction Past Psychological History: No Psychological Hx Reported Smoking Status: Former smoker Past Alcohol Use History: Occasional Past Drug Use History: None Reported - Past Family History Father Family Medical History: Cancer Additional Family Medical History / Comment(s): Lymphoma Mother Family Medical History: Myocardial Infarction (ME) Additional Family Medical History / Comment(s): Mother had heart problems and a ME. She lived to be 83 yrs old. General Exam - General Exam Comments Initial Comments: GENERAL: Patient is well-developed and well-nourished. Patient is nontoxic and well- hydrated and is in no acute distress. ENT: Neck is soft and supple. No significant lymphadenopathy is noted. Oropharynx is clear. Moist mucous membranes. Neck has full range of motion without eliciting any pain. EYES: The sclera were anicteric and conjunctiva were pink and moist. Extraocular movements were intact and pupils were equal round and reactive to light. Eyelids were unremarkable. PULMONARY: Unlabored respirations. Good breath sounds bilaterally. No audible rales rhonchi or wheezing was noted. CARDIOVASCULAR: There is a regular rate and rhythm without any murmurs gallops or rubs. ABDOMEN: Soft and nontender with normal bowel sounds. SKIN: Skin is clear with no lesions or rashes and otherwise unremarkable. NEUROLOGIC: Patient is alert and oriented x3. Cranial nerves II through XII are grossly intact. Motor and sensory are also intact. Normal speech, volume and content. Symmetrical smile. MUSCULOSKELETAL: Normal extremities with adequate strength and full range of motion. No lower extremity swelling or edema. No calf tenderness. LYMPHATICS: No significant lymphadenopathy is noted PSYCHIATRIC: Normal psychiatric evaluation. Limitations: no limitations Course Vital Signs 09/22/21 08:49 Temperature 98.3 F Pulse Rate 70 Respiratory 18 Rate Blood Pressure 132/61 O2 Sat by Pulse 98 Oximetry Medical Decision Making - Medical Decision Making Chest x-ray shows no acute abnormality. Patient's urine had quite a few white cells and red cells no bacteria noted however because the previous infection and the white count I started the patient antibiotics. Patient is too weak to ambulate and family is unable take care of him. I spoke with [facility] significant with the patient admitted the patient wrote admitting orders. - Lab Data Result diagrams: 09/22/21 09:47 09/22/21 09:47 Lab Results 09/22/21 09/22/21 09/22/21 Range/Units 09:47 09:47 09:47 WBC 12.4 H (3.8-10.6) k/uL RBC 4.60 (4.30-5.90) m/uL Hgb 13.1 (13.0-17.5) gm/dL Hct 40.7 (39.0-53.0) % MCV 88.4 (80.0-100.0) fL MCH 28.4 (25.0-35.0) pg MCHC 32.2 (31.0-37.0) g/dL RDW 16.4 H (11.5-15.5) % Plt Count 246 (150-450) k/uL MPV 7.8 Neutrophils % 85 % Lymphocytes % 7 % Monocytes % 5 % Eosinophils % 2 % Basophils % 0 % Neutrophils # 10.6 H (1.3-7.7) k/uL Lymphocytes # 0.9 L (1.0-4.8) k/uL Monocytes # 0.6 (0-1.0) k/uL Eosinophils # 0.2 (0-0.7) k/uL Basophils # 0.1 (0-0.2) k/uL Anisocytosis Slight PT 48.9 H (9.0-12.0) sec INR 5.1 H* (<1.2) APTT 45.4 H (22.0-30.0) sec Sodium (137-145) mmol/L Potassium (3.5-5.1) mmol/L Chloride (98-107) mmol/L Carbon Dioxide (22-30) mmol/L Anion Gap mmol/L BUN (9-20) mg/dL Creatinine (0.66-1.25) mg/dL Est GFR (CKD-EPI)AfAm (>60 ml/min/1.73 sqM) Est GFR (CKD-EPI)NonAf (>60 ml/min/1.73 sqM) Glucose (74-99) mg/dL Plasma Lactic Acid Noam (0.7-2.0) mmol/L Calcium (8.4-10.2) mg/dL Magnesium (1.6-2.3) mg/dL Total Bilirubin (0.2-1.3) mg/dL AST (17-59) U/L ALT (4-49) U/L Alkaline Phosphatase (38-126) U/L Troponin I (0.000-0.034) ng/mL Total Protein (6.3-8.2) g/dL Albumin (3.5-5.0) g/dL Urine Color Red Urine Appearance Cloudy (Clear) Urine pH 5.5 (5.0-8.0) Ur Specific Beauty 1.016 (1.001-1.035) Urine Protein 2+ H (Negative) Urine Glucose (UA) 4+ H (Negative) Urine Ketones Negative (Negative) Urine Blood Large H (Negative) Urine Nitrite Negative (Negative) Urine Bilirubin Negative (Negative) Urine Urobilinogen <2.0 (<2.0) mg/dL Ur Leukocyte Esterase Large H (Negative) Urine RBC >182 H (0-5) /hpf Urine WBC >182 H (0-5) /hpf Urine WBC Clumps Few H (None) /hpf Ur Squamous Epith Cells 1 (0-4) /hpf Urine Mucus Occasional H (None) /hpf Urine Yeast (Budding) Few H (None) /hpf Coronavirus (PCR) (Not Detectd) 09/22/21 09/22/21 09/22/21 Range/Units 09:47 09:47 09:47 WBC (3.8-10.6) k/uL RBC (4.30-5.90) m/uL Hgb (13.0-17.5) gm/dL Hct (39.0-53.0) % MCV (80.0-100.0) fL MCH (25.0-35.0) pg MCHC (31.0-37.0) g/dL RDW (11.5-15.5) % Plt Count (150-450) k/uL MPV Neutrophils % % Lymphocytes % % Monocytes % % Eosinophils % % Basophils % % Neutrophils # (1.3-7.7) k/uL Lymphocytes # (1.0-4.8) k/uL Monocytes # (0-1.0) k/uL Eosinophils # (0-0.7) k/uL Basophils # (0-0.2) k/uL Anisocytosis PT (9.0-12.0) sec INR (<1.2) APTT (22.0-30.0) sec Sodium 133 L (137-145) mmol/L Potassium 5.0 (3.5-5.1) mmol/L Chloride 102 (98-107) mmol/L Carbon Dioxide 23 (22-30) mmol/L Anion Gap 8 mmol/L BUN 57 H (9-20) mg/dL Creatinine 1.31 H (0.66-1.25) mg/dL Est GFR (CKD-EPI)AfAm 57 (>60 ml/min/1.73 sqM) Est GFR (CKD-EPI)NonAf 49 (>60 ml/min/1.73 sqM) Glucose 171 H (74-99) mg/dL Plasma Lactic Acid Noam 1.6 (0.7-2.0) mmol/L Calcium 9.2 (8.4-10.2) mg/dL Magnesium 1.9 (1.6-2.3) mg/dL Total Bilirubin 0.7 (0.2-1.3) mg/dL AST 23 (17-59) U/L ALT 14 (4-49) U/L Alkaline Phosphatase 89 (38-126) U/L Troponin I <0.012 (0.000-0.034) ng/mL Total Protein 6.8 (6.3-8.2) g/dL Albumin 3.4 L (3.5-5.0) g/dL Urine Color Urine Appearance (Clear) Urine pH (5.0-8.0) Ur Specific Beauty (1.001-1.035) Urine Protein (Negative) Urine Glucose (UA) (Negative) Urine Ketones (Negative) Urine Blood (Negative) Urine Nitrite (Negative) Urine Bilirubin (Negative) Urine Urobilinogen (<2.0) mg/dL Ur Leukocyte Esterase (Negative) Urine RBC (0-5) /hpf Urine WBC (0-5) /hpf Urine WBC Clumps (None) /hpf Ur Squamous Epith Cells (0-4) /hpf Urine Mucus (None) /hpf Urine Yeast (Budding) (None) /hpf Coronavirus (PCR) (Not Detectd) 09/22/21 Range/Units 10:19 WBC (3.8-10.6) k/uL RBC (4.30-5.90) m/uL Hgb (13.0-17.5) gm/dL Hct (39.0-53.0) % MCV (80.0-100.0) fL MCH (25.0-35.0) pg MCHC (31.0-37.0) g/dL RDW (11.5-15.5) % Plt Count (150-450) k/uL MPV Neutrophils % % Lymphocytes % % Monocytes % % Eosinophils % % Basophils % % Neutrophils # (1.3-7.7) k/uL Lymphocytes # (1.0-4.8) k/uL Monocytes # (0-1.0) k/uL Eosinophils # (0-0.7) k/uL Basophils # (0-0.2) k/uL Anisocytosis PT (9.0-12.0) sec INR (<1.2) APTT (22.0-30.0) sec Sodium (137-145) mmol/L Potassium (3.5-5.1) mmol/L Chloride (98-107) mmol/L Carbon Dioxide (22-30) mmol/L Anion Gap mmol/L BUN (9-20) mg/dL Creatinine (0.66-1.25) mg/dL Est GFR (CKD-EPI)AfAm (>60 ml/min/1.73 sqM) Est GFR (CKD-EPI)NonAf (>60 ml/min/1.73 sqM) Glucose (74-99) mg/dL Plasma Lactic Acid Noam (0.7-2.0) mmol/L Calcium (8.4-10.2) mg/dL Magnesium (1.6-2.3) mg/dL Total Bilirubin (0.2-1.3) mg/dL AST (17-59) U/L ALT (4-49) U/L Alkaline Phosphatase (38-126) U/L Troponin I (0.000-0.034) ng/mL Total Protein (6.3-8.2) g/dL Albumin (3.5-5.0) g/dL Urine Color Urine Appearance (Clear) Urine pH (5.0-8.0) Ur Specific Beauty (1.001-1.035) Urine Protein (Negative) Urine Glucose (UA) (Negative) Urine Ketones (Negative) Urine Blood (Negative) Urine Nitrite (Negative) Urine Bilirubin (Negative) Urine Urobilinogen (<2.0) mg/dL Ur Leukocyte Esterase (Negative) Urine RBC (0-5) /hpf Urine WBC (0-5) /hpf Urine WBC Clumps (None) /hpf Ur Squamous Epith Cells (0-4) /hpf Urine Mucus (None) /hpf Urine Yeast (Budding) (None) /hpf Coronavirus (PCR) Not Detected (Not Detectd) Disposition Clinical Impression: Coagulopathy, Hematuria, Weakness, UTI (urinary tract infection), Renal insufficiency Disposition: ADMITTED IP TO THIS HOSP Referrals: Farrah Doran III, MD [Primary Care Provider] - 1-2 days Time of Disposition: 11:56
[2021-09-22] MEDS ORDERED: cefTRIAXone IN SWFI 1,000 MG/10 ML SYRINGE IVP STA (09:57)
[2021-09-22 10:30] LABS: Anisocytosis Slight; Basophils # (A) 0.1 k/uL (0-0.2); Basophils % (A) 0 %; Eosinophils # (A) 0.2 k/uL (0-0.7); Eosinophils % (A) 2 %; HCT 40.7 % (39.0-53.0); HGB 13.1 gm/dL (13.0-17.5); Lymphocytes # (A) 0.9 k/uL (1.0-4.8); Lymphocytes % (A) 7 %; MCH 28.4 pg (25.0-35.0); MCHC 32.2 g/dL (31.0-37.0); MCV 88.4 fL (80.0-100.0); Mean Platelet Volume 7.8; Monocytes # (A) 0.6 k/uL (0-1.0); Monocytes % (A) 5 %; Neutrophils # (A) 10.6 k/uL (1.3-7.7); Neutrophils % (A) 85 %; Platelet Count 246 k/uL (150-450); RDW 16.4 % (11.5-15.5); WBC 12.4 k/uL (3.8-10.6)
--- NOTE | 2021-09-22 10:32 | XR ---
EXAMINATION TYPE: XR chest 2V DATE OF EXAM: 09/22/2021 COMPARISON: 03/08/2019 INDICATION: Weakness TECHNIQUE: Frontal and lateral views of the chest are obtained. FINDINGS: The heart size is normal. The pulmonary vasculature is normal. Mild right lower lobe streaky opacity is present. Correlate for atelectasis or pneumonia. There is so me hyperinflation finding the diaphragms compatible with COPD. Sternotomy wires are present from prio r CABG IMPRESSION: 1. Streaky opacity right lower lobe. Correlate for atelectasis or pneumonia. Follow-up can be perform ed.
[2021-09-22 10:44] LABS: Albumin 3.4 g/dL (3.5-5.0); Calcium 9.2 mg/dL (8.4-10.2); Magnesium 1.9 mg/dL (1.6-2.3); Total Bilirubin 0.7 mg/dL (0.2-1.3); Total Protein 6.8 g/dL (6.3-8.2)
[2021-09-22 10:57] LABS: Appearance,Urine Cloudy (Clear); Bilirubin,Urine Negative (Negative); Blood,Urine Large (Negative); Budding Yeast,Urine Few /hpf; Color,Urine Red; Glucose,Urine (UA) 4+ (Negative); Ketones,Urine Negative (Negative); Leukocyte Esterase,Urine Large (Negative); Mucus,Urine Occasional /hpf; Nitrite,Urine Negative (Negative); PH, Urine 5.5 (5.0-8.0); Protein,Urine 2+ (Negative); RBC,Urine >182 /hpf (0-5); Specific Gravity,Urine 1.016 (1.001-1.035); Squamous Epithelial Cell,Urine 1 /hpf (0-4); Urobilinogen,Urine <2.0 mg/dL (<2.0); WBC,Urine >182 /hpf (0-5)
[2021-09-22 11:13] LABS: Partial Thromboplastin Time 45.4 sec (22.0-30.0); Prothrombin Time 48.9 sec (9.0-12.0)
[2021-09-22 11:30] LABS: INR 5.1 (<1.2)
[2021-09-22] MEDS ORDERED: SODIUM CHLORIDE 0.9% 1,000 ML IV ONE (11:57)
[2021-09-22 13:18] LABS: Anisocytosis Slight; Basophils % (A) 0 %; Eosinophils # (A) 0.2 k/uL (0-0.7); Eosinophils % (A) 1 %; HGB 12.6 gm/dL (13.0-17.5); Lymphocytes # (A) 0.9 k/uL (1.0-4.8); Lymphocytes % (A) 8 %; MCH 28.6 pg (25.0-35.0); MCHC 32.3 g/dL (31.0-37.0); MCV 88.6 fL (80.0-100.0); Mean Platelet Volume 7.8; Monocytes # (A) 0.6 k/uL (0-1.0); Monocytes % (A) 5 %; Neutrophils # (A) 9.5 k/uL (1.3-7.7); Neutrophils % (A) 84 %; Platelet Count 239 k/uL (150-450); RBC 4.39 m/uL (4.30-5.90); RDW 16.5 % (11.5-15.5); WBC 11.3 k/uL (3.8-10.6)
[2021-09-22 21:28] LABS: Glucose,Whole Blood 220 mg/dL (75-99)
--- NOTE | 2021-09-22 23:21 | P.HPIM ---
History of Present Illness H&P Date: 09/22/21 Chief Complaint: Blood in the urine Patient is a 85-year-old male with a known history of paroxysmal atrial fibrillation on anticoagulation with Coumadin, coronary artery disease history of CABG, valvular heart disease, hypertension, diabetes type 2, hyperlipidemia, previous history of smoking presents to ED with complaints of blood in the urine. Patient had acute urinary tract infection about 10 days ago and was treated with antibiotics and home Bactrim. Patient woke up this morning and found to have blood in the urine. Denied any passing clots. Patient is also having some tightness in the lower abdomen. No complaints of chest pain or shortness of breath. No fever no chills. Patient is also having generalized weakness for the past 2 weeks. Family helped him get into the car. According to the family patient is not eating very well. No headache or dizziness or lightheadedness. No leg swelling. Chest x-ray showed streaky opacity right lower lobe. Correlate for atelectasis or pneumonia. Laboratory showed WBC 12.4 hemoglobin 13.1 and platelets 246 INR 5.1 Sodium 133 potassium 5.0 chloride 102 BUN 57 creatinine 1.31 and albumin 3.4 Urinalysis showed 2+ protein 4+ glucose large blood large leukoesterase elevated RBCs and WBCs. COVID-19 PCR not detected. Review of Systems Constitutional: Patient denies any fever or chills . generalized weakness. no weight loss. Abdomen: Patient denied nausea vomiting and diarrhea and abdominal pain. Cardiovascular: Patient denies any chest pain or short of breath no palpitations. Respiratory: patient denied any cough or sputum production. No shortness of breath Neurologic: Patient denied any numbness or tingling headache. Musculoskeletal: Patient denies any complaints of joint swelling or deformity. Skin: Negative Psychiatric: Negative Endocrine: No heat or cold intolerance. No recent weight gain. Genitourinary: No dysuria. + hematuria. 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 Past Anesthesia/Blood Transfusion Reactions: No Reported Reaction Past Psychological History: No Psychological Hx Reported Additional Psychological History / Comment(s): Pt resides with his spouse. He uses no assistive device. He drives. He states he still water skis and swims. Smoking Status: Former smoker Past Alcohol Use History: Occasional Additional Past Alcohol Use History / Comment(s): Pt started smoking in 1949 and quit in 1992. Pt drinks an occasional beer. Past Drug Use History: None Reported - Past Family History Father Family Medical History: Cancer Additional Family Medical History / Comment(s): Lymphoma Mother Family Medical History: Myocardial Infarction (LA) Additional Family Medical History / Comment(s): Mother had heart problems and a LA. She lived to be 83 yrs old. Medications and Allergies Home Medications Medication Instructions Recorded Confirmed Type Aspirin EC [Ecotrin Low Dose] 81 mg PO DAILY 03/06/19 09/22/21 History Olmesartan Medoxomil [Benicar] 40 mg PO DAILY 03/06/19 09/22/21 History Omeprazole 20 mg PO DAILY 03/06/19 09/22/21 History Pravastatin Sodium [Pravachol] 40 mg PO HS 03/06/19 09/22/21 History hydroCHLOROthiazide 25 mg PO DAILY 03/06/19 09/22/21 History sitaGLIPtin PHOS/metFORMIN HCL 1 tab PO BID 03/06/19 09/22/21 History [Janumet 50-500 mg Tablet] Metoprolol Tartrate [Lopressor] 75 mg PO BID #60 tab 03/08/19 09/22/21 Rx Cholecalciferol [Vitamin D3 (25 25 mcg PO DAILY 09/22/21 09/22/21 History Mcg = 1000 Iu)] Empagliflozin [Jardiance] 10 mg PO HS 09/22/21 09/22/21 History Verapamil Sr [Isoptin Sr] 180 mg PO HS 09/22/21 09/22/21 History Warfarin [Coumadin] 1.5 mg PO HS 09/22/21 09/22/21 History Allergies Allergy/AdvReac Type Severity Reaction Status Date / Time No Known Allergies Allergy Verified 09/22/21 11:27 Physical Exam Vitals: Vital Signs Temp Pulse Pulse Resp BP BP Pulse Ox 09/22/21 20:14 98.1 F 63 15 175/65 93 L 09/22/21 16:00 76 16 138/80 97 09/22/21 08:49 98.3 F 70 18 132/61 98 Intake and Output 09/22/21 09/22/21 09/23/21 14:59 22:59 06:59 Other: Voiding Method Toilet Weight 83.915 kg PHYSICAL EXAMINATION: Patient is lying in the bed comfortably, no acute distress, awake alert and oriented.. HEENT: Normocephalic. Neck is supple. Pupils reactive. Nostrils clear. Oral cavity is moist. Neck reveals no JVD, carotid bruits, or thyromegaly. CHEST EXAMINATION: Trachea is central. Symmetrical expansion. Lung khan clear to auscultation and percussion. CARDIAC: Normal S1, S2 with no gallops. + murmur ABDOMEN: Soft. Bowel sounds normal. No organomegaly. No abdominal bruits. Extremities: reveal no edema. No clubbing or cyanosis Neurologically awake, alert, oriented x3 with well-coordinated movements. No focal deficits noted Skin: No rash or skin lesions. Psychiatric: Cooperative. Nonsuicidal Musculoskeletal: No joint swelling or deformity. Normal range of motion. Results CBC & Chem 7: 09/22/21 12:39 09/22/21 09:47 Labs: Abnormal Lab Results - Last 24 Hours (Table) 09/22/21 09/22/21 09/22/21 Range/Units 09:47 09:47 09:47 WBC 12.4 H (3.8-10.6) k/uL Hgb (13.0-17.5) gm/dL RDW 16.4 H (11.5-15.5) % Neutrophils # 10.6 H (1.3-7.7) k/uL Lymphocytes # 0.9 L (1.0-4.8) k/uL PT 48.9 H (9.0-12.0) sec INR 5.1 H* (<1.2) APTT 45.4 H (22.0-30.0) sec Sodium (137-145) mmol/L BUN (9-20) mg/dL Creatinine (0.66-1.25) mg/dL Glucose (74-99) mg/dL POC Glucose (mg/dL) (75-99) mg/dL Albumin (3.5-5.0) g/dL Urine Protein 2+ H (Negative) Urine Glucose (UA) 4+ H (Negative) Urine Blood Large H (Negative) Ur Leukocyte Esterase Large H (Negative) Urine RBC >182 H (0-5) /hpf Urine WBC >182 H (0-5) /hpf Urine WBC Clumps Few H (None) /hpf Urine Mucus Occasional H (None) /hpf Urine Yeast (Budding) Few H (None) /hpf 09/22/21 09/22/21 09/22/21 Range/Units 09:47 12:39 21:26 WBC 11.3 H (3.8-10.6) k/uL Hgb 12.6 L (13.0-17.5) gm/dL RDW 16.5 H (11.5-15.5) % Neutrophils # 9.5 H (1.3-7.7) k/uL Lymphocytes # 0.9 L (1.0-4.8) k/uL PT (9.0-12.0) sec INR (<1.2) APTT (22.0-30.0) sec Sodium 133 L (137-145) mmol/L BUN 57 H (9-20) mg/dL Creatinine 1.31 H (0.66-1.25) mg/dL Glucose 171 H (74-99) mg/dL POC Glucose (mg/dL) 220 H (75-99) mg/dL Albumin 3.4 L (3.5-5.0) g/dL Urine Protein (Negative) Urine Glucose (UA) (Negative) Urine Blood (Negative) Ur Leukocyte Esterase (Negative) Urine RBC (0-5) /hpf Urine WBC (0-5) /hpf Urine WBC Clumps (None) /hpf Urine Mucus (None) /hpf Urine Yeast (Budding) (None) /hpf Microbiology - Last 24 Hours (Table) 09/22/21 09:47 Urine Culture - Preliminary Urine,Voided Thrombosis Risk Factor Assmnt - DVT/VTE Prophylaxis DVT/VTE Prophylaxis: Pharmacologic Prophylaxis ordered - Choose All That Apply Each Risk Factor Represents 3 Points: Age 75 years or older Thrombosis Risk Factor Assessment Total Risk Factor Score: 3 Thrombosis Risk Factor Assessment Level: Moderate Risk Assessment and Plan Assessment: Gross Hematuria. Patient does have blood-tinged urine with elevated INR level 5.1 Coumadin coagulopathy. Hypovolemic hyponatremia Acute kidney injury likely prerenal Possible acute urinary tract infection Coronary artery disease history of CABG Paroxysmal atrial fibrillation on anticoagulant Coumadin Low back pain with sciatica right side Diabetes type 2 [id number] Previous history of smoking Hyperlipidemia DVT prophylaxis patient is already coagulopathic Plan: Patient will be continued on gentle IV hydration and antibiotics involve ceftriaxone. Monitor hemoglobin and hematocrit. Patient states that his urine is clearing up at this time. Denied any passing clots. Discussed the family regarding urology consult, since patient is coagulo pathic and will monitor at this time. Monitor INR level. Coumadin on hold. Continued home medications and follow-up closely. Follow-up urine culture report. Time with Patient: Greater than 30
[2021-09-23] MEDS: VERAPAMIL SR 180 MG TABLET.ER PO SCH ×2 (04:52→20:28)
[2021-09-23 07:10] LABS: Appearance,Urine Clear (Clear); Bacteria,Urine Rare /hpf; Bilirubin,Urine Negative (Negative); Blood,Urine Large (Negative); Color,Urine Yellow; Glucose,Urine (UA) 4+ (Negative); Ketones,Urine Negative (Negative); Leukocyte Esterase,Urine Small (Negative); Mucus,Urine Rare /hpf; Nitrite,Urine Negative (Negative); PH, Urine 6.5 (5.0-8.0); Protein,Urine Trace (Negative); RBC,Urine 155 /hpf (0-5); Specific Gravity,Urine 1.013 (1.001-1.035); Urobilinogen,Urine <2.0 mg/dL (<2.0); WBC,Urine 20 /hpf (0-5)
[2021-09-23 07:39] LABS: Glucose,Whole Blood 116 mg/dL (75-99)
[2021-09-23] MEDS: METOPROLOL TARTRATE 25 MG TAB PO SCH ×2 (10:23→20:28)
[2021-09-23] MEDS: LOSARTAN 50 MG TAB PO SCH (10:23)
[2021-09-23] MEDS: LINAGLIPTIN 5 MG TABLET PO SCH (10:24)
[2021-09-23] MEDS: PANTOPRAZOLE 40 MG TABLET PO SCH (10:24)
[2021-09-23] MEDS: ASPIRIN 81 MG PO SCH (10:24)
[2021-09-23] MEDS: metFORMIN 500 MG TAB PO SCH (10:25)
[2021-09-23 11:28] LABS: Glucose,Whole Blood 191 mg/dL (75-99)
[2021-09-23] MEDS ORDERED: IPRATROPIUM-ALBUTEROL 3 ML NEB INHALATION PRN (12:30)
[2021-09-23 14:07] LABS: Anisocytosis Slight; Basophils # (A) 0.1 k/uL (0-0.2); Basophils % (A) 1 %; Eosinophils # (A) 0.2 k/uL (0-0.7); Eosinophils % (A) 2 %; HGB 13.6 gm/dL (13.0-17.5); Lymphocytes # (A) 1.1 k/uL (1.0-4.8); Lymphocytes % (A) 9 %; MCH 28.3 pg (25.0-35.0); MCV 91.1 fL (80.0-100.0); Mean Platelet Volume 7.8; Monocytes # (A) 1.3 k/uL (0-1.0); Monocytes % (A) 10 %; Neutrophils # (A) 9.6 k/uL (1.3-7.7); Neutrophils % (A) 77 %; Platelet Count 242 k/uL (150-450); RBC 4.82 m/uL (4.30-5.90); RDW 16.5 % (11.5-15.5); WBC 12.5 k/uL (3.8-10.6)
[2021-09-23 14:15] LABS: INR 3.6 (<1.2); Prothrombin Time 34.3 sec (9.0-12.0)
[2021-09-23 14:18] LABS: African American GFR (CKD) >90 (>60 ml/min/1.73 sqM); Anion Gap 12 mmol/L; Blood Urea Nitrogen 32 mg/dL (9-20); Calcium 9.2 mg/dL (8.4-10.2); Carbon Dioxide 21 mmol/L (22-30); Chloride 104 mmol/L (98-107); Glucose 176 mg/dL (74-99); Non-African American GFR(CKD) 80 (>60 ml/min/1.73 sqM); Potassium 4.9 mmol/L (3.5-5.1); Sodium 137 mmol/L (137-145)
[2021-09-23 16:30] LABS: Glucose,Whole Blood 174 mg/dL (75-99)
[2021-09-23] MEDS: PRAVASTATIN SODIUM 40 MG TAB PO SCH (20:28)
[2021-09-23 20:29] LABS: Glucose,Whole Blood 174 mg/dL (75-99)
[2021-09-23] MEDS: NON FORMULARY DRUG (Empagliflozin [Jardiance] 10 MG Tablet) PO SCH (21:32)
[2021-09-24] MEDS: LOSARTAN 50 MG TAB PO SCH (09:50)
[2021-09-24] MEDS: metFORMIN 500 MG TAB PO SCH (09:50)
[2021-09-24] MEDS: LINAGLIPTIN 5 MG TABLET PO SCH (09:51)
[2021-09-24] MEDS: PANTOPRAZOLE 40 MG TABLET PO SCH (09:51)
[2021-09-24] MEDS: ASPIRIN 81 MG PO SCH (09:52)
[2021-09-24] MEDS: METOPROLOL TARTRATE 25 MG TAB PO SCH ×2 (09:52→20:09)
[2021-09-24 09:53] LABS: African American GFR (CKD) >90 (>60 ml/min/1.73 sqM); Anion Gap 8 mmol/L; Blood Urea Nitrogen 30 mg/dL (9-20); Calcium 9.3 mg/dL (8.4-10.2); Carbon Dioxide 26 mmol/L (22-30); Chloride 104 mmol/L (98-107); Glucose 158 mg/dL (74-99); Non-African American GFR(CKD) 79 (>60 ml/min/1.73 sqM); Potassium 4.6 mmol/L (3.5-5.1); Sodium 138 mmol/L (137-145)
[2021-09-24 09:59] LABS: Anisocytosis Slight; Basophils # (A) 0.1 k/uL (0-0.2); Basophils % (A) 1 %; Eosinophils # (A) 0.3 k/uL (0-0.7); Eosinophils % (A) 3 %; HCT 41.2 % (39.0-53.0); HGB 13.5 gm/dL (13.0-17.5); Lymphocytes # (A) 1.2 k/uL (1.0-4.8); Lymphocytes % (A) 12 %; MCH 28.8 pg (25.0-35.0); MCHC 32.7 g/dL (31.0-37.0); Mean Platelet Volume 7.7; Monocytes # (A) 0.8 k/uL (0-1.0); Monocytes % (A) 8 %; Neutrophils # (A) 7.2 k/uL (1.3-7.7); Neutrophils % (A) 74 %; Platelet Count 257 k/uL (150-450); RBC 4.68 m/uL (4.30-5.90); RDW 16.9 % (11.5-15.5); WBC 9.7 k/uL (3.8-10.6)
[2021-09-24 16:39] LABS: Glucose,Whole Blood 213 mg/dL (75-99)
[2021-09-24] MEDS: NON FORMULARY DRUG (Empagliflozin [Jardiance] 10 MG Tablet) PO SCH (20:06)
[2021-09-24] MEDS: PRAVASTATIN SODIUM 40 MG TAB PO SCH (20:09)
[2021-09-24] MEDS: VERAPAMIL SR 180 MG TABLET.ER PO SCH (20:09)
[2021-09-24 21:20] LABS: Glucose,Whole Blood 152 mg/dL (75-99)
--- NOTE | 2021-09-24 23:13 | P.PN ---
Subjective Progress Note Date: 09/23/21 Principal diagnosis: Hematuria Patient is a 85-year-old male with a known history of paroxysmal atrial fibrillation on anticoagulation with Coumadin, coronary artery disease history of CABG, valvular heart disease, hypertension, diabetes type 2, hyperlipidemia, previous history of smoking presents to ED with complaints of blood in the urine. Patient had acute urinary tract infection about 10 days ago and was treated with antibiotics and home Bactrim. Patient woke up this morning and found to have blood in the urine. Denied any passing clots. Patient is also having some tightness in the lower abdomen. No complaints of chest pain or shortness of breath. No fever no chills. Patient is also having generalized weakness for the past 2 weeks. Family helped him get into the car. According to the family patient is not eating very well. No headache or dizziness or lightheadedness. No leg swelling. Chest x-ray showed streaky opacity right lower lobe. Correlate for atelectasis or pneumonia. Laboratory showed WBC 12.4 hemoglobin 13.1 and platelets 246 INR 5.1 Sodium 133 potassium 5.0 chloride 102 BUN 57 creatinine 1.31 and albumin 3.4 Urinalysis showed 2+ protein 4+ glucose large blood large leukoesterase elevated RBCs and WBCs. COVID-19 PCR not detected. 09/23/2021 Patient is currently lying in the bed comfortably. Denies any blood in the urine today. Hemoglobin is stable. Otherwise patient feels very weak and PT OT was consulted. Patient is unable to get out of bed by himself and needs two- person assistance. On ceftriaxone for possible UTI. Follow-up urine culture report. Lab data reviewed and current medications reviewed. Objective - Vital Signs Vital signs: Vital Signs Temp 97.9 F 09/23/21 19:19 Pulse 81 09/23/21 19:19 Resp 18 09/23/21 19:19 BP 145/64 09/23/21 19:19 Pulse Ox 93 L 09/23/21 19:19 Intake & Output 09/23/21 09/23/21 09/24/21 06:59 18:59 06:59 Intake Total 480 Output Total 300 Balance 480 -300 Intake: Oral 480 Output: Urine 300 Other: Voiding Method Diaper Diaper - Exam PHYSICAL EXAMINATION: Patient is lying in the bed comfortably, no acute distress, awake alert and oriented.. HEENT: Normocephalic. Neck is supple. Pupils reactive. Nostrils clear. Oral cavity is moist. Neck reveals no JVD, carotid bruits, or thyromegaly. CHEST EXAMINATION: Trachea is central. Symmetrical expansion. Lung khan clear to auscultation and percussion. CARDIAC: Normal S1, S2 with no gallops. + murmur ABDOMEN: Soft. Bowel sounds normal. No organomegaly. No abdominal bruits. Extremities: reveal no edema. No clubbing or cyanosis Neurologically awake, alert, oriented x3 with well-coordinated movements. No focal deficits noted Skin: No rash or skin lesions. Psychiatric: Cooperative. Nonsuicidal Musculoskeletal: No joint swelling or deformity. Normal range of motion. - Labs CBC & Chem 7: 09/24/21 09:06 09/24/21 09:06 Labs: Abnormal Lab Results - Last 24 Hours (Table) 09/23/21 09/23/21 09/23/21 Range/Units 05:30 07:20 11:25 WBC (3.8-10.6) k/uL RDW (11.5-15.5) % Neutrophils # (1.3-7.7) k/uL Monocytes # (0-1.0) k/uL PT (9.0-12.0) sec INR (<1.2) Carbon Dioxide (22-30) mmol/L BUN (9-20) mg/dL Glucose (74-99) mg/dL POC Glucose (mg/dL) 116 H 191 H (75-99) mg/dL Urine Protein Trace H (Negative) Urine Glucose (UA) 4+ H (Negative) Urine Blood Large H (Negative) Ur Leukocyte Esterase Small H (Negative) Urine RBC 155 H (0-5) /hpf Urine WBC 20 H (0-5) /hpf Urine Bacteria Rare H (None) /hpf Urine Mucus Rare H (None) /hpf 09/23/21 09/23/21 09/23/21 Range/Units 13:02 13:02 13:02 WBC 12.5 H (3.8-10.6) k/uL RDW 16.5 H (11.5-15.5) % Neutrophils # 9.6 H (1.3-7.7) k/uL Monocytes # 1.3 H (0-1.0) k/uL PT 34.3 H (9.0-12.0) sec INR 3.6 H (<1.2) Carbon Dioxide 21 L (22-30) mmol/L BUN 32 H (9-20) mg/dL Glucose 176 H (74-99) mg/dL POC Glucose (mg/dL) (75-99) mg/dL Urine Protein (Negative) Urine Glucose (UA) (Negative) Urine Blood (Negative) Ur Leukocyte Esterase (Negative) Urine RBC (0-5) /hpf Urine WBC (0-5) /hpf Urine Bacteria (None) /hpf Urine Mucus (None) /hpf 09/23/21 09/23/21 Range/Units 16:25 20:28 WBC (3.8-10.6) k/uL RDW (11.5-15.5) % Neutrophils # (1.3-7.7) k/uL Monocytes # (0-1.0) k/uL PT (9.0-12.0) sec INR (<1.2) Carbon Dioxide (22-30) mmol/L BUN (9-20) mg/dL Glucose (74-99) mg/dL POC Glucose (mg/dL) 174 H 174 H (75-99) mg/dL Urine Protein (Negative) Urine Glucose (UA) (Negative) Urine Blood (Negative) Ur Leukocyte Esterase (Negative) Urine RBC (0-5) /hpf Urine WBC (0-5) /hpf Urine Bacteria (None) /hpf Urine Mucus (None) /hpf Microbiology - Last 24 Hours (Table) 09/22/21 09:47 Urine Culture - Final Urine,Voided Assessment and Plan Assessment: Gross Hematuria. resolved. Patient does have blood-tinged urine with elevated INR level 5.1 Coumadin coagulopathy. Hypovolemic hyponatremia Acute kidney injury likely prerenal Possible acute urinary tract infection Coronary artery disease history of CABG Paroxysmal atrial fibrillation on anticoagulant Coumadin Low back pain with sciatica right side Diabetes type 2 [id number] Previous history of smoking Hyperlipidemia DVT prophylaxis patient is already coagulopathic Plan: Patient will be continued on gentle IV hydration and antibiotics - ceftriaxone. Monitor hemoglobin and hematocrit. Patient states that his urine is clearing up at this time. Denied any passing clots. Discussed the family regarding urology consult, since patient is coagulopathic and will monitor at this time. Monitor INR level. Coumadin on hold. Continued home medications and follow-up closely. Follow-up urine culture report.
--- NOTE | 2021-09-25 02:43 | P.PN ---
Subjective Progress Note Date: 09/24/21 Hematuria Patient is a 85-year-old male with a known history of paroxysmal atrial fibrillation on anticoagulation with Coumadin, coronary artery disease history of CABG, valvular heart disease, hypertension, diabetes type 2, hyperlipidemia, previous history of smoking presents to ED with complaints of blood in the urine. Patient had acute urinary tract infection about 10 days ago and was treated with antibiotics and home Bactrim. Patient woke up this morning and found to have blood in the urine. Denied any passing clots. Patient is also having some tightness in the lower abdomen. No complaints of chest pain or shortness of breath. No fever no chills. Patient is also having generalized weakness for the past 2 weeks. Family helped him get into the car. According to the family patient is not eating very well. No headache or dizziness or lightheadedness. No leg swelling. Chest x-ray sh owed streaky opacity right lower lobe. Correlate for atelectasis or pneumonia. Laboratory showed WBC 12.4 hemoglobin 13.1 and platelets 246 INR 5.1 Sodium 133 potassium 5.0 chloride 102 BUN 57 creatinine 1.31 and albumin 3.4 Urinalysis showed 2+ protein 4+ glucose large blood large leukoesterase elevated RBCs and WBCs. COVID-19 PCR not detected. 09/23/2021 Patient is currently lying in the bed comfortably. Denies any blood in the urine today. Hemoglobin is stable. Otherwise patient feels very weak and PT OT was consulted. Patient is unable to get out of bed by himself and needs two-person assistance. On ceftriaxone for possible UTI. Follow-up urine culture report. 09/24/2021 Patient is seen in follow up and continues on IV antibiotics in the form of IV ceftriaxone and finalized cultures showing normal jac. Patient hematuria resolved and hemoglobin today is 13.5 with no hematuria noted. Patient with continued weakness and will consult PT/OT for evaluation. social work consulted as well for possible ECF placement. Patient maintained on coumadin which has been on hold for elevated INR and will repeat am labs. Labs: wbc is 9.7, hemoglobin is 13.5, platelets are 257, sodium is 138, potassium is 4.6, bun is 30, cr is 0.85 Review of systems: Constitutional: No reports of fatigue, fever, or chills Cardiovascular: No reports of chest pain or palpitations Respiratory: no reports of shortness of breath GI: No reports of nausea, vomiting, or diarrhea : No reports of dysuria or retention, no further hematuria Neurovascular: reports generalized weakness All medications have been reviewed Active Medications Albuterol/Ipratropium (Ipratropium-Albuterol 3 Ml Neb) 3 ml INHALATION RT-QID PRN PRN Reason: Shortness Of Breath Or Wheezing Aspirin (Aspirin 81 Mg) 81 mg PO DAILY [facility] Last Admin: 09/24/21 09:52 Dose: 81 mg Documented by: Ceftriaxone Sodium 1 gm/ (Sodium Chloride) 50 mls @ 100 mls/hr IVPB Q24HR [facility] Last Admin: 09/24/21 09:52 Dose: 100 mls/hr Documented by: Linagliptin (Linagliptin 5 Mg Tablet) 1 mg PO DAILY [facility] Last Admin: 09/24/21 09:51 Dose: 1 mg Documented by: Losartan Potassium (Losartan 50 Mg Tab) 150 mg PO DAILY [facility] Last Admin: 09/24/21 09:50 Dose: 150 mg Documented by: Metformin HCl (Metformin 500 Mg Tab) 500 mg PO DAILY [facility] Last Admin: 09/24/21 09:50 Dose: 500 mg Documented by: Metoprolol Tartrate (Metoprolol Tartrate 25 Mg Tab) 75 mg PO BID [facility] Last Admin: 09/24/21 20:09 Dose: 75 mg Documented by: Non-Formulary Medication (Empagliflozin [Jardiance]) 10 mg PO [facility] Last Admin: 09/24/21 20:06 Dose: Not Given Documented by: Pantoprazole Sodium (Pantoprazole 40 Mg Tablet) 40 mg PO DAILY [facility] Last Admin: 09/24/21 09:51 Dose: 40 mg Documented by: Pravastatin Sodium (Pravastatin Sodium 40 Mg Tab) 40 mg PO [facility] Last Admin: 09/24/21 20:09 Dose: 40 mg Documented by: Verapamil HCl (Verapamil Sr 180 Mg Tablet.Er) 180 mg PO [facility] Last Admin: 09/24/21 20:09 Dose: 180 mg Documented by: Physical exam: Patient is lying in the bed comfortably, no acute distress, awake alert and oriented.. HEENT: Normocephalic. Neck is supple. Pupils reactive. Nostrils clear. Oral cavity is moist. Neck reveals no JVD, carotid bruits, or thyromegaly. CHEST EXAMINATION: Trachea is central. Symmetrical expansion. Lung khan clear to auscultation and percussion. CARDIAC: Normal S1, S2 with no gallops. + murmur ABDOMEN: Soft. Bowel sounds normal. No organomegaly. No abdominal bruits. Extremities: reveal no edema. No clubbing or cyanosis Neurologically awake, alert, oriented x3 with well-coordinated movements. No focal deficits noted Skin: No rash or skin lesions. Psychiatric: Cooperative. Non-suicidal Musculoskeletal: No joint swelling or deformity. Normal range of motion. Assessment: Gross Hematuria. resolved. Coumadin coagulopathy. Hypovolemic hyponatremia Acute kidney injury likely prerenal Possible acute urinary tract infection Coronary artery disease history of CABG Paroxysmal atrial fibrillation on anticoagulant Coumadin Low back pain with sciatica right side Diabetes type 2 [id number] Previous history of smoking Hyperlipidemia DVT prophylaxis patient is already coagulopathic Plan: Patient will be continued on gentle IV hydration and antibiotics in the form of ceftriaxone. Hemoglobin is stable at 13.5. Will repeat INR as patient is maintained on Coumadin. Coumadin was on hold for elevated INR. Urine culture shows normal jac. Patient is afebrile. Will continue IV abx for now. Patient continues with weakness and will have PT/OT evaluate the patient for possible ECF. Family would like rehab. Will continue to monitor closely with further recommendations to follow based on the clinical course of the patient. Await PT recommendations. Social work will be consulted. Prognosis is guarded. Objective - Vital Signs Vital signs: Vital Signs Temp 97.5 F L 09/24/21 14:00 Pulse 78 09/24/21 14:00 Resp 16 09/24/21 14:00 BP 123/60 09/24/21 14:00 Pulse Ox 95 09/24/21 14:00 Intake & Output 09/23/21 09/24/21 09/24/21 18:59 06:59 18:59 Output Total 300 Balance -300 Output: Urine 300 Other: Voiding Method Diaper Diaper # Voids 2 - Labs CBC & Chem 7: 09/24/21 09:06 09/24/21 09:06 Labs: Abnormal Lab Results - Last 24 Hours (Table) 09/23/21 09/23/21 09/24/21 Range/Units 16:25 20:28 09:06 RDW 16.9 H (11.5-15.5) % BUN (9-20) mg/dL Glucose (74-99) mg/dL POC Glucose (mg/dL) 174 H 174 H (75-99) mg/dL 09/24/21 Range/Units 09:06 RDW (11.5-15.5) % BUN 30 H (9-20) mg/dL Glucose 158 H (74-99) mg/dL POC Glucose (mg/dL) (75-99) mg/dL Microbiology - Last 24 Hours (Table) 09/22/21 09:47 Urine Culture - Final Urine,Voided
[2021-09-25 06:55] LABS: Glucose,Whole Blood 237 mg/dL (75-99)
[2021-09-25 09:13] LABS: Prothrombin Time 19.2 sec (9.0-12.0)
[2021-09-25] MEDS: LOSARTAN 50 MG TAB PO SCH (10:01)
[2021-09-25] MEDS: METOPROLOL TARTRATE 25 MG TAB PO SCH ×2 (10:01→20:41)
[2021-09-25] MEDS: LINAGLIPTIN 5 MG TABLET PO SCH (10:02)
[2021-09-25] MEDS: metFORMIN 500 MG TAB PO SCH (10:03)
[2021-09-25] MEDS: PANTOPRAZOLE 40 MG TABLET PO SCH (10:03)
[2021-09-25] MEDS: ASPIRIN 81 MG PO SCH (10:03)
[2021-09-25 11:55] LABS: Glucose,Whole Blood 195 mg/dL (75-99)
--- NOTE | 2021-09-25 16:00 | P.PN ---
Subjective Progress Note Date: 09/25/21 Hematuria Patient is a 85-year-old male with a known history of paroxysmal atrial fibrillation on anticoagulation with Coumadin, coronary artery disease history of CABG, valvular heart disease, hypertension, diabetes type 2, hyperlipidemia, previous history of smoking presents to ED with complaints of blood in the urine. Patient had acute urinary tract infection about 10 days ago and was treated with antibiotics and home Bactrim. Patient woke up this morning and found to have blood in the urine. Denied any passing clots. Patient is also having some tightness in the lower abdomen. No complaints of chest pain or shortness of breath. No fever no chills. Patient is also having generalized weakness for the past 2 weeks. Family helped him get into the car. According to the family patient is not eating very well. No headache or dizziness or lightheadedness. No leg swelling. Chest x-ray sh owed streaky opacity right lower lobe. Correlate for atelectasis or pneumonia. Laboratory showed WBC 12.4 hemoglobin 13.1 and platelets 246 INR 5.1 Sodium 133 potassium 5.0 chloride 102 BUN 57 creatinine 1.31 and albumin 3.4 Urinalysis showed 2+ protein 4+ glucose large blood large leukoesterase elevated RBCs and WBCs. COVID-19 PCR not detected. 09/23/2021 Patient is currently lying in the bed comfortably. Denies any blood in the urine today. Hemoglobin is stable. Otherwise patient feels very weak and PT OT was consulted. Patient is unable to get out of bed by himself and needs two-person assistance. On ceftriaxone for possible UTI. Follow-up urine culture report. 09/24/2021 Patient is seen in follow up and continues on IV antibiotics in the form of IV ceftriaxone and finalized cultures showing normal jac. Patient hematuria resolved and hemoglobin today is 13.5 with no hematuria noted. Patient with continued weakness and will consult PT/OT for evaluation. social work consulted as well for possible ECF placement. Patient maintained on coumadin which has been on hold for elevated INR and will repeat am labs. 09/25/2021 Patient is seen today and maintained on IV antibiotics in the form of ceftriaxone and will transition to a short course of oral on discharge. Patient is weak and PT recommending [facility] for discharge and will follow up with social work in the am about accepting facilites and discharge planning. INR is 2.0 today and will have pharmacy dose coumadin. Patient normally takes 1.5mg at night. Oxygen saturations in the low 90's and will order chest xray. Encouraged incentive spirometer use. Encourage oral intake. Review of systems: Constitutional: No reports of fatigue, fever, or chills Cardiovascular: No reports of chest pain or palpitations Respiratory: no reports of shortness of breath GI: No reports of nausea, vomiting, or diarrhea : No reports of dysuria or retention, no further hematuria Neurovascular: reports generalized weakness All medications have been reviewed Active Medications Albuterol/Ipratropium (Ipratropium-Albuterol 3 Ml Neb) 3 ml INHALATION RT-QID PRN PRN Reason: Shortness Of Breath Or Wheezing Aspirin (Aspirin 81 Mg) 81 mg PO DAILY [facility] Last Admin: 09/25/21 10:03 Dose: 81 mg Documented by: Ceftriaxone Sodium 1 gm/ (Sodium Chloride) 50 mls @ 100 mls/hr IVPB Q24HR [facility] Last Admin: 09/25/21 10:03 Dose: 100 mls/hr Documented by: Linagliptin (Linagliptin 5 Mg Tablet) 1 mg PO DAILY [facility] Last Admin: 09/25/21 10:02 Dose: 1 mg Documented by: Losartan Potassium (Losartan 50 Mg Tab) 150 mg PO DAILY [facility] Last Admin: 09/25/21 10:01 Dose: 150 mg Documented by: Metformin HCl (Metformin 500 Mg Tab) 500 mg PO DAILY [facility] Last Admin: 09/25/21 10:03 Dose: 500 mg Documented by: Metoprolol Tartrate (Metoprolol Tartrate 25 Mg Tab) 75 mg PO BID [facility] Last Admin: 09/25/21 10:01 Dose: 75 mg Documented by: Non-Formulary Medication (Empagliflozin [Jardiance]) 10 mg PO [facility] Last Admin: 09/24/21 20:06 Dose: Not Given Documented by: Pantoprazole Sodium (Pantoprazole 40 Mg Tablet) 40 mg PO DAILY [facility] Last Admin: 09/25/21 10:03 Dose: 40 mg Documented by: Pravastatin Sodium (Pravastatin Sodium 40 Mg Tab) 40 mg PO [facility] Last Admin: 09/24/21 20:09 Dose: 40 mg Documented by: Verapamil HCl (Verapamil Sr 180 Mg Tablet.Er) 180 mg PO [facility] Last Admin: 09/24/21 20:09 Dose: 180 mg Documented by: Physical exam: Patient is lying in the bed comfortably, no acute distress, awake alert and oriented.. HEENT: Normocephalic. Neck is supple. Pupils reactive. Nostrils clear. Oral cavity is moist. Neck reveals no JVD, carotid bruits, or thyromegaly. CHEST EXAMINATION: Trachea is central. Symmetrical expansion. Lung khan clear to auscultation and percussion. CARDIAC: Normal S1, S2 with no gallops. + murmur ABDOMEN: Soft. Bowel sounds normal. No organomegaly. No abdominal bruits. Extremities: reveal no edema. No clubbing or cyanosis Neurologically awake, alert, oriented x3 with well-coordinated movements. No focal deficits noted, diffuse weakness Skin: No rash or skin lesions. Psychiatric: Cooperative. Non-suicidal Musculoskeletal: No joint swelling or deformity. Normal range of motion. Assessment: Gross Hematuria. resolved. Coumadin coagulopathy. Hypovolemic hyponatremia Acute kidney injury likely prerenal Possible acute urinary tract infection Coronary artery disease history of CABG Paroxysmal atrial fibrillation on anticoagulant Coumadin Low back pain with sciatica right side Diabetes type 2 [id number] Previous history of smoking Hyperlipidemia DVT prophylaxis patient is already coagulopathic Plan: Patient will be continued on antibiotics in the form of ceftriaxone. INR is 2.0 today as patient is maintained on Coumadin which has been on hold for elevated INR. Will resume on discharge and recommend close outpatient monitoring. Urine culture shows normal jac. Patient is afebrile. Will continue IV abx for now. Patient continues with weakness and PT/OT recommend ECF. Family would like rehab. Will continue to monitor closely with further recommendations to follow based on the clinical course of the patient. Await family preference of [facility] or [facility] and await accepting facility. Social work following. . Prognosis is guarded. Possible discharge in 24-48 hours. Objective - Vital Signs Vital signs: Vital Signs Temp 97.4 F L 09/25/21 07:33 Pulse 45 L 09/25/21 07:33 Resp 22 09/25/21 07:33 BP 107/63 09/25/21 07:33 Pulse Ox 92 L 09/25/21 07:33 Intake & Output 09/24/21 09/25/21 09/25/21 18:59 06:59 18:59 Other: Voiding Method Diaper # Voids 4 2 # Bowel Movements 1 - Labs CBC & Chem 7: 09/24/21 09:06 09/24/21 09:06 Labs: Abnormal Lab Results - Last 24 Hours (Table) 09/24/21 09/24/21 09/25/21 Range/Units 16:38 21:19 06:54 PT (9.0-12.0) sec INR (<1.2) POC Glucose (mg/dL) 213 H 152 H 237 H (75-99) mg/dL 09/25/21 Range/Units 08:33 PT 19.2 H (9.0-12.0) sec INR 2.0 H (<1.2) POC Glucose (mg/dL) (75-99) mg/dL
[2021-09-25 17:18] LABS: Glucose,Whole Blood 281 mg/dL (75-99)
--- NOTE | 2021-09-25 17:34 | XR ---
EXAMINATION TYPE: XR chest 1V portable DATE OF EXAM: 09/25/2021 COMPARISON: Chest radiograph 05/22/2021 HISTORY: SOB. TECHNIQUE: Single frontal view of the chest is obtained. FINDINGS: Median sternotomy wires. CABG changes. The cardiomediastinal structures are within normal limits. There is blunting of the left costophrenic angle compatible to multiple prior radiographs. There are strandy left greater than right bibasilar opacities. IMPRESSION: Small left effusion/scarring with adjacent atelectasis/airspace disease.
[2021-09-25] MEDS: PRAVASTATIN SODIUM 40 MG TAB PO SCH (20:40)
[2021-09-25] MEDS: NON FORMULARY DRUG (Empagliflozin [Jardiance] 10 MG Tablet) PO SCH (20:41)
[2021-09-25 20:45] LABS: Glucose,Whole Blood 158 mg/dL (75-99)
[2021-09-25] MEDS ORDERED: WARFARIN 1.5 MG TAB PO SCH (21:00)
[2021-09-25] MEDS: VERAPAMIL SR 180 MG TABLET.ER PO SCH (21:39)
[2021-09-26 07:01] LABS: Anisocytosis Slight; Basophils # (A) 0.1 k/uL (0-0.2); Basophils % (A) 1 %; Eosinophils # (A) 0.3 k/uL (0-0.7); Eosinophils % (A) 3 %; HCT 36.3 % (39.0-53.0); Lymphocytes # (A) 1.2 k/uL (1.0-4.8); Lymphocytes % (A) 11 %; MCH 29.1 pg (25.0-35.0); MCV 88.2 fL (80.0-100.0); Monocytes # (A) 0.7 k/uL (0-1.0); Monocytes % (A) 7 %; Neutrophils # (A) 8.5 k/uL (1.3-7.7); Neutrophils % (A) 78 %; Platelet Count 267 k/uL (150-450); RBC 4.12 m/uL (4.30-5.90); RDW 16.9 % (11.5-15.5)
[2021-09-26 07:14] LABS: INR 1.8 (<1.2); Prothrombin Time 17.6 sec (9.0-12.0)
[2021-09-26 07:19] LABS: African American GFR (CKD) 87 (>60 ml/min/1.73 sqM); Anion Gap 9 mmol/L; Blood Urea Nitrogen 31 mg/dL (9-20); Calcium 8.9 mg/dL (8.4-10.2); Carbon Dioxide 23 mmol/L (22-30); Chloride 105 mmol/L (98-107); Glucose 209 mg/dL (74-99); Non-African American GFR(CKD) 75 (>60 ml/min/1.73 sqM); Potassium 4.5 mmol/L (3.5-5.1); Sodium 137 mmol/L (137-145)
[2021-09-26 07:41] LABS: Glucose,Whole Blood 218 mg/dL (75-99)
[2021-09-26] MEDS: PANTOPRAZOLE 40 MG TABLET PO SCH (08:09)
[2021-09-26] MEDS: metFORMIN 500 MG TAB PO SCH (08:09)
[2021-09-26] MEDS: ASPIRIN 81 MG PO SCH (08:10)
[2021-09-26] MEDS: LOSARTAN 50 MG TAB PO SCH (08:10)
[2021-09-26] MEDS: LINAGLIPTIN 5 MG TABLET PO SCH (08:10)
[2021-09-26] MEDS: METOPROLOL TARTRATE 25 MG TAB PO SCH ×2 (08:27→19:24)
[2021-09-26] MEDS: NON FORMULARY DRUG (Empagliflozin [Jardiance] 10 MG Tablet) PO SCH (08:57)
[2021-09-26 11:37] LABS: Glucose,Whole Blood 185 mg/dL (75-99)
--- NOTE | 2021-09-26 16:21 | PN ---
PROGRESS NOTE DATE OF SERVICE: 09/26/2021 This 85-year-old gentleman who was admitted with gross hematuria also had Coumadin coagulopathy. Patient being closely monitored at this time. The most recent chest x- ray which was done yesterday showed small left effusion with scarring with adjacent atelectasis. The hemoglobin is 12 at this time. INR is 1.8. No chest pain. No palpitations. No fever. PHYSICAL EXAMINATION: Alert and oriented times three. Pulse is 48, blood pressure 100/33, respirations 16, temperature 98.4, pulse ox 91 percent on room air. HEENT: Conjunctivae normal. Neck: No jugular venous distention. Cardiovascular: S1, S2 muffled. Respiration: Breath sounds diminished in the bases. Scattered rhonchi. Abdomen: Soft. Nervous system: No focal deficits. LABS: WBC 11, hemoglobin is 12. INR 1.8. Sodium 137. Glucose noted. ASSESSMENT: 1. Gross hematuria secondary to Coumadin coagulopathy. 2. Coumadin coagulopathy, improving. 3. Anemia acute blood loss anemia from genitourinary blood loss, mild. 4. Increased WBC. 5. Coumadin monitoring. 6. Hypovolemic hyponatremia. 7. Acute kidney injury, likely prerenal improved with possible acute urinary tract infection present on admission. 8. Coronary artery disease, coronary artery bypass grafting. 9. Paroxysmal atrial fibrillation on anticoagulation with Coumadin. 10.Low back pain and sciatica right thigh. 11.Diabetes mellitus type 2, non-insulin dependent. 12.Previous history of smoking. 13.Hyperlipidemia. 14.Deep vein thrombosis prophylaxis. RECOMMENDATIONS AND DISCUSSION: Recommend to continue current medications, management and symptomatic treatment. Otherwise repeat labs tomorrow. The patient is started on Coumadin 1.5 mg q.h.s. Monitor blood sugars closely. I would also recommend addition of the insulin scale. Further recommendations to follow. MMODL / IJN: [id number] / HUBER
[2021-09-26 16:31] LABS: Glucose,Whole Blood 247 mg/dL (75-99)
[2021-09-26] MEDS: INSULIN ASPART (NovoLOG) 100 UNIT/ML VIAL SQ SCH ×2 (16:54→21:28)
[2021-09-26] MEDS: VERAPAMIL SR 180 MG TABLET.ER PO SCH (19:27)
[2021-09-26] MEDS: PRAVASTATIN SODIUM 40 MG TAB PO SCH (19:27)
[2021-09-26 20:49] LABS: Glucose,Whole Blood 131 mg/dL (75-99)
[2021-09-26] MEDS ORDERED: WARFARIN 1.25 MG TAB PO ONE (21:00)
[2021-09-26] MEDS ORDERED: WARFARIN 0.5 MG TAB PO ONE (21:00)
[2021-09-27 07:04] LABS: Anisocytosis Slight; Basophils % (A) 0 %; Eosinophils # (A) 0.3 k/uL (0-0.7); Eosinophils % (A) 3 %; HCT 35.8 % (39.0-53.0); HGB 11.6 gm/dL (13.0-17.5); Lymphocytes # (A) 1.3 k/uL (1.0-4.8); Lymphocytes % (A) 12 %; MCH 28.9 pg (25.0-35.0); MCHC 32.5 g/dL (31.0-37.0); MCV 89.1 fL (80.0-100.0); Mean Platelet Volume 7.8; Monocytes # (A) 0.6 k/uL (0-1.0); Monocytes % (A) 6 %; Neutrophils # (A) 8.2 k/uL (1.3-7.7); Neutrophils % (A) 77 %; Platelet Count 204 k/uL (150-450); RBC 4.02 m/uL (4.30-5.90); RDW 16.8 % (11.5-15.5); WBC 10.6 k/uL (3.8-10.6)
[2021-09-27 07:05] LABS: INR 2.1 (<1.2); Prothrombin Time 20.7 sec (9.0-12.0)
[2021-09-27 07:06] LABS: African American GFR (CKD) >90 (>60 ml/min/1.73 sqM); Anion Gap 7 mmol/L; Blood Urea Nitrogen 32 mg/dL (9-20); Carbon Dioxide 24 mmol/L (22-30); Chloride 106 mmol/L (98-107); Glucose 131 mg/dL (74-99); Non-African American GFR(CKD) 83 (>60 ml/min/1.73 sqM); Potassium 4.8 mmol/L (3.5-5.1); Sodium 137 mmol/L (137-145)
[2021-09-27 07:18] LABS: Glucose,Whole Blood 140 mg/dL (75-99)
[2021-09-27] MEDS: INSULIN ASPART (NovoLOG) 100 UNIT/ML VIAL SQ SCH ×2 (07:47→11:47)
[2021-09-27] MEDS: LOSARTAN 50 MG TAB PO SCH (07:47)
[2021-09-27] MEDS: LINAGLIPTIN 5 MG TABLET PO SCH (07:47)
[2021-09-27] MEDS: ASPIRIN 81 MG PO SCH (07:48)
[2021-09-27] MEDS: metFORMIN 500 MG TAB PO SCH (07:48)
[2021-09-27] MEDS: PANTOPRAZOLE 40 MG TABLET PO SCH (07:48)
[2021-09-27] MEDS: METOPROLOL TARTRATE 25 MG TAB PO SCH (07:48)
[2021-09-27 10:49] LABS: Glucose,Whole Blood 158 mg/dL (75-99)
--- NOTE | 2021-09-27 12:58 | P.DS ---
Providers Date of admission: 09/22/21 11:57 Expected date of discharge: 09/27/21 Attending physician: Roberto Salazar Primary care physician: Farrah Doran Hospital Course: Final diagnosis Gross Hematuria secondary to Coumadin coagulopathy Coumadin coagulopathy, improving Acute blood loss anemia from genitourinary blood loss, mild Elevated white blood count Hypovolemic hyponatremia Acute kidney injury likely prerenal, improved with possible acute urinary tract infection, present on admission Coronary artery disease history of CABG Paroxysmal atrial fibrillation on anticoagulant Coumadin Low back pain with sciatica right side Diabetes type 2 [id number] Previous history of smoking Hyperlipidemia DVT prophylaxis patient is already coagulopathic Discharge disposition Patient is being discharged in a stable condition with guarded prognosis to [facility] for continued PT/OT therapy. Patient will follow-up with Dr. Crump in the outpatient setting upon discharge. Patient is to continue with Dr. Doran in the outpatient setting upon discharge from [facility]. Patient to continue with oral Ceftin 500 mg twice daily for the next 3 days to complete the course and the medius continue. Total time taken is greater than 35 minutes. Hospital course This is an 85-year-old male who was recently admitted with gross hematuria also had Coumadin coagulopathy and being closely monitored. Urinalysis was done and cultures were negative and patient was maintained on IV ceftriaxone and we'll transition to oral Ceftin 500 mg twice daily for the next 3 days and then may discontinue. Recommend repeat labs and close monitoring of PT/INR as patient takes Coumadin. Patient continues to be weak and was evaluated by physical therapy recommending subacute rehab for strength and mobility and was accepted at [facility] and will be discharging to [facility] today. Recommend repeat labs of CBC, BMP, PT/INR and okay to resume Coumadin 1.5 mg at at bedtime as INR is 2.1 today. Currently no reports of chest pain, shortness of breath, or palpitations. Patient is afebrile. No reports of nausea or vomiting and patient is tolerating diet. Patient will be going to [facility] on [facility] today. On exam vital signs are stable. Cardio S1, S2 are muffled. Respiratory system shows diminished breath sounds at the bases with no wheezing or rhonchi noted. Abdomen is soft and obese, and nontender. Nervous system shows diffuse weakness. Please refer to medication reconciliation sheet for a list of medications. Patient Condition at Discharge: Stable Plan - Discharge Summary New Discharge Prescriptions: New Cefuroxime Axetil [Ceftin] 500 mg PO BID 3 Days #6 tab Ipratropium-Albuterol Nebulize [Duoneb 0.5 mg-3 mg/3 ml Soln] 3 ml INHALATION RT-QID PRN ml PRN Reason: Shortness Of Breath Or Wheezing Losartan [Cozaar] 150 mg PO DAILY tab INSULIN ASPART (NovoLOG) [NovoLOG (formulary)] 0 unit SQ ACHS ml Continue Pravastatin Sodium [Pravachol] 40 mg PO HS Omeprazole 20 mg PO DAILY hydroCHLOROthiazide 25 mg PO DAILY sitaGLIPtin PHOS/metFORMIN HCL [Janumet 50-500 mg Tablet] 1 tab PO BID Aspirin EC [Ecotrin Low Dose] 81 mg PO DAILY Metoprolol Tartrate [Lopressor] 75 mg PO BID #60 tab Warfarin [Coumadin] 1.5 mg PO HS Verapamil Sr [Isoptin Sr] 180 mg PO HS Cholecalciferol [Vitamin D3 (25 Mcg = 1000 Iu)] 25 mcg PO DAILY Empagliflozin [Jardiance] 10 mg PO HS Discontinued Olmesartan Medoxomil [Benicar] 40 mg PO DAILY Discharge Medication List Aspirin EC [Ecotrin Low Dose] 81 mg PO DAILY 03/06/19 [History] Omeprazole 20 mg PO DAILY 03/06/19 [History] Pravastatin Sodium [Pravachol] 40 mg PO HS 03/06/19 [History] hydroCHLOROthiazide 25 mg PO DAILY 03/06/19 [History] sitaGLIPtin PHOS/metFORMIN HCL [Janumet 50-500 mg Tablet] 1 tab PO BID 03/06/19 [History] Metoprolol Tartrate [Lopressor] 75 mg PO BID #60 tab 03/08/19 [Rx] Cholecalciferol [Vitamin D3 (25 Mcg = 1000 Iu)] 25 mcg PO DAILY 09/22/21 [History] Empagliflozin [Jardiance] 10 mg PO HS 09/22/21 [History] Verapamil Sr [Isoptin Sr] 180 mg PO HS 09/22/21 [History] Warfarin [Coumadin] 1.5 mg PO HS 09/22/21 [History] Cefuroxime Axetil [Ceftin] 500 mg PO BID 3 Days #6 tab 09/27/21 [Rx] INSULIN ASPART (NovoLOG) [NovoLOG (formulary)] 0 unit SQ ACHS ml 09/27/21 [Rx] Ipratropium-Albuterol Nebulize [Duoneb 0.5 mg-3 mg/3 ml Soln] 3 ml INHALATION RT-QID PRN ml 09/27/21 [Rx] Losartan [Cozaar] 150 mg PO DAILY tab 09/27/21 [Rx] Follow up Appointment(s)/Referral(s): Farrah Doran III, MD [Primary Care Provider] - 1-2 days [facility] Visiting Nurse, [NON-STAFF] - Ambulatory/Diagnostic Orders: Complete Blood Count w/diff [LAB.AMB] Time Frame: 2 Days, Location: None Selected Activity/Diet/Wound Care/Special Instructions: Patient is going to [facility] on the [facility] as tolerated Continue with antibiotics for 3 days and then may discontinue Continue with Coumadin 1.5 mg at at bedtime and recommend outpatient PT/INR closely Continue incentive spirometry at least 10 times every hour while awake Continue regular diet Discharge Disposition: TRANSFER TO SNF/ECF
[2021-09-27] MEDS ORDERED: ACETAMINOPHEN TAB 325 MG TAB PO PRN (14:40)
[2021-09-27 15:46] VITALS: BP 188/62; PULSE 69; RESP 18; TEMP 98.1
[2021-09-27] MEDS ORDERED: WARFARIN 1.5 MG TAB PO ONE (18:00)
== END 2021-09-27 16:50 | DRG 813 ==
LOC: EC 08:39 → 5NMEDONC 11:57 → 4SSUR 12:36
PROVIDERS: ADMIT Internal Medicine; ATTEND Internal Medicine
DX: D68.32 Hemorrhagic disorder due to extrinsic circulating anticoagulants (principal); D62 Acute posthemorrhagic anemia; E87.1 Hypo-osmolality and hyponatremia; N17.9 Acute kidney failure, unspecified; N39.0 Urinary tract infection, site not specified; E11.9 Type 2 diabetes mellitus without complications; E78.5 Hyperlipidemia, unspecified; E86.1 Hypovolemia; I10 Essential (primary) hypertension; I25.10 Atherosclerotic heart disease of native coronary artery without angina pectoris; I48.0 Paroxysmal atrial fibrillation; M54.41 Lumbago with sciatica, right side; R31.0 Gross hematuria; T45.515A Adverse effect of anticoagulants, initial encounter; Z20.822 Contact with and (suspected) exposure to COVID-19; Z79.01 Long term (current) use of anticoagulants; Z79.82 Long term (current) use of aspirin; Z79.84 Long term (current) use of oral hypoglycemic drugs; Z79.899 Other long term (current) drug therapy; Z80.7 Family history of other malignant neoplasms of lymphoid, hematopoietic and related tissues; Z82.49 Family history of ischemic heart disease and other diseases of the circulatory system; Z87.891 Personal history of nicotine dependence; Z95.1 Presence of aortocoronary bypass graft
CPT/HCPCS: 36415; 71045; 71046; 80048; 80053; 81001; 83605; 83735; 84484; 85025; 85610; 85730; 87086; 87635; 94760; 96361; 96374; 99285

== ENCOUNTER 2021-10-17 22:14 | Inpatient (IN) | payer MEDICARE ==
[2021-10-17] MEDS ORDERED: ACETAMINOPHEN TAB 500 MG TAB PO STA (22:38)
--- NOTE | 2021-10-17 23:33 | ED ---
General Adult HPI - General Chief complaint: Extremity Injury, Lower Stated complaint: Left Leg Pain Time Seen by Provider: 10/17/21 22:17 Source: patient, EMS, RN notes reviewed, old records reviewed, Caregiver Mode of arrival: EMS Limitations: physical limitation - History of Present Illness Initial comments: Patient is an 85-year-old male who presents from [facility] for CT imaging. I spoke with the patient's PCP from his nursing facility. Dr. Crump requested that we obtain CT imaging the patient's left hip and pelvis. He is concerned for possible bony traumatic injury. Patient has been having chronic pain over the site. X-rays were negative. They did scrotal evaluation as well which is negative. He is concerned for possible fracture that is occult. He requests CT imaging. No other acute complaints at this time. The patient does have a history of atrial fibrillation, CAD, diabetes, hypertension. He states his pain is chronic. He denies any falls. No other acute complaints at this time. He states he has radiation of the left lateral hip pain towards his groin. Denies any rashes. States that when he moves his knee has some pain. Has no acute complaints at this time. - Related Data Home Medications Medication Instructions Recorded Confirmed Aspirin EC [Ecotrin Low Dose] 81 mg PO DAILY@0900 03/06/19 10/17/21 Omeprazole 20 mg PO DAILY@0900 03/06/19 10/17/21 Pravastatin Sodium [Pravachol] 40 mg PO HS@209903/06/19 10/17/21 hydroCHLOROthiazide 25 mg PO DAILY@0900 03/06/19 10/17/21 sitaGLIPtin PHOS/metFORMIN HCL 1 tab PO BID@0900,209903/06/19 10/17/21 [Janumet 50-500 mg Tablet] Cholecalciferol [Vitamin D3 (25 25 mcg PO DAILY@0900 09/22/21 10/17/21 Mcg = 1000 Iu)] Empagliflozin [Jardiance] 10 mg PO HS@209909/22/21 10/17/21 Acetaminophen Tab [Tylenol] 650 mg PO Q4H PRN 10/17/21 10/17/21 HYDROcodone/APAP 5-325MG [[place] 1 tab PO TID PRN 10/17/21 10/17/21 5-325] Insulin Lispro [humaLOG Kwikpen] See Protocol SQ QID 10/17/21 10/17/21 Losartan [Cozaar] 100 mg PO DAILY@0900 10/17/21 10/17/21 Metoprolol Tartrate [Lopressor] 75 mg PO BID@0900,209910/17/21 10/17/21 Nystatin 100,000 Unit/gm Powd 1 applic TOPICAL BID 10/17/21 10/17/21 [Mycostatin Powder] Verapamil HCl [Verapamil ER] 180 mg PO HS@209910/17/21 10/17/21 Warfarin [Coumadin] 1 mg PO MOWEFR@209910/17/21 10/17/21 Warfarin [Coumadin] 1.5 mg PO SUTUTHSA@209910/17/21 10/17/21 Previous Rx's Medication Instructions Recorded Ipratropium-Albuterol Nebulize 3 ml INHALATION RT-QID PRN ml 09/27/21 [Duoneb 0.5 mg-3 mg/3 ml Soln] Allergies Allergy/AdvReac Type Severity Reaction Status Date / Time No Known Allergies Allergy Verified 10/17/21 23:20 Review of Systems ROS Statement: Those systems with pertinent positive or pertinent negative responses have been documented in the HPI. Review of Systems: CONST: Denies fever EYES: Denies blurry vision ENT: Denies nasal congestion C/V: Denies Chest pain RESP: Denies shortness of breath GI: Denies abdominal pain : Denies dysuria SKIN: Denies rash. MSK: Endorses chronic hip pain NEURO: Denies headache ROS Other: All systems not noted in ROS Statement are negative. 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 Past Anesthesia/Blood Transfusion Reactions: No Reported Reaction Past Psychological History: No Psychological Hx Reported Smoking Status: Former smoker Past Alcohol Use History: Occasional Past Drug Use History: None Reported - Past Family History Father Family Medical History: Cancer Additional Family Medical History / Comment(s): Lymphoma Mother Family Medical History: Myocardial Infarction ([place]) Additional Family Medical History / Comment(s): Mother had heart problems and a [place]. She lived to be 83 yrs old. General Exam - General Exam Comments Initial Comments: General: Appears in no acute distress. HEAD: Normal with no signs of head trauma. EYES: PERRLA, EOMI, conjunctiva normal, no discharge. ENT: Hearing grossly intact, normal oropharynx. RESPIRATORY: Clear breath sounds bilaterally. No wheezes, rales, or rhonchi. C/V: Regular rate and rhythm. S1 and S2 auscultated, no edema, peripheral pulses 2+ and intact throughout ABD: Abd is soft, nontender, nondistended EXT: Patient is reduced range of motion of the left hip secondary to pain. He is tender over the lateral greater trochanter of the left hip. Pelvis is stable. No distal femur tenderness to palpation. No tenderness with palpation of the knee, foot on the left side. No midline spinal tenderness of the lumbar, thoracic spines. No midline spinal tenderness of the cervical spine. SKIN: No rashes or lesions observed on the skin. No decubitus ulcers. No skin changes. No crepitus. No skin infection. NEURO: Alert and oriented. No focal sensory strength deficits. Limitations: physical limitation Course Vital Signs 10/17/21 22:20 Temperature 97.7 F Pulse Rate 72 Respiratory 16 Rate Blood Pressure 151/70 O2 Sat by Pulse 93 L Oximetry Medical Decision Making - Medical Decision Making Based on the patient's presentation and physical exam, patient's PCP Dr. Crump sent the patient for CT imaging, as he states would take a long time to obtain imaging at his facility. X-rays taken at the facility were negative for any acute issue. Patient has chronic left hip pain without any acute falls or injuries. CT imaging will be obtained of the pelvis and hips. Patient will be given Tylenol for pain management. Patient was in agreement this plan. CT imaging was remarkable for findings consistent with an acute intertrochanteric fracture of the left femur. No other acute findings at this time. Orthopedic surgery was consulted, Dr. Frey due to the acute nature of injury. Patient was accepted onto his service. I consulted EMS, and spoke with P Amarilys was consulted for medical management. Coumadin will be held at this time. Laboratory studies were ordered. Preop femur x-rays were also ordered at the request of Dr. Frey. Patient was therefore admitted in stable condition. Casanova catheter will be placed as the patient is non-ambulatory at this time. Laboratory studies are still pending at this time. Patient was made nothing by mouth. I spoke with the patient's , Brandie over the phone and updated her on the patient's condition at his request. She was able to provide a little more information, the patient fell partially one to one half months ago is been having difficulty walking since, however was able to ambulate initially. The pain has been persistent since that time. PRN norco, morphine were ordered for the patient. Disposition Clinical Impression: Fracture, intertrochanteric, left femur, On Coumadin for atrial fibrillation Disposition: ADMITTED IP TO THIS HOSP Condition: Stable Referrals: Farrah Doran III, MD [Primary Care Provider] - 1-2 days
--- NOTE | 2021-10-18 00:38 | CT ---
EXAMINATION TYPE: CT pelvis wo con DATE OF EXAM: 10/18/2021 COMPARISON: Pain HISTORY: Left hip pain CT DLP: 454.8 mGycm Automated exposure control for dose reduction was used. Images obtained from the iliac crests to the subtrochanteric femurs without contrast. There is acute slightly impacted intertrochanteric fracture left femur. There is no dislocation. Ther e is some comminution. There is osteopenia. The pelvic ring is intact. Sacroiliac joints are intact. There is moderate spondylotic changes in the lower lumbar spine. The sacrum is intact. There is no fr ee fluid in the pelvis. There is no evidence of a pelvic mass. There is mild enlargement of the urina ry bladder. Bladder measures 14 cm in length. IMPRESSION: Acute intertrochanteric fracture left femur. Atherosclerotic vascular disease. Large urinary bladder suggestive of some chronic bladder outlet obstruction.
[2021-10-18] MEDS ORDERED: ACETAMINOPHEN TAB 325 MG TAB PO PRN (00:47)
[2021-10-18] MEDS ORDERED: NALOXONE 0.4 MG/ML 1 ML VIAL IV PRN (01:00)
[2021-10-18] MEDS ORDERED: MORPHINE SULFATE 2 MG/ML SYRINGE IV PRN (01:00)
[2021-10-18 01:33] LABS: Anisocytosis Slight; Basophils % (A) 0 %; Eosinophils # (A) 0.2 k/uL (0-0.7); Eosinophils % (A) 2 %; HCT 37.9 % (39.0-53.0); HGB 12.9 gm/dL (13.0-17.5); Lymphocytes # (A) 0.9 k/uL (1.0-4.8); Lymphocytes % (A) 6 %; MCH 29.1 pg (25.0-35.0); MCHC 33.9 g/dL (31.0-37.0); MCV 85.8 fL (80.0-100.0); Mean Platelet Volume 7.8; Monocytes # (A) 0.7 k/uL (0-1.0); Monocytes % (A) 5 %; Neutrophils # (A) 11.7 k/uL (1.3-7.7); Neutrophils % (A) 86 %; Platelet Count 262 k/uL (150-450); RBC 4.42 m/uL (4.30-5.90); RDW 16.9 % (11.5-15.5); WBC 13.7 k/uL (3.8-10.6)
[2021-10-18 01:43] LABS: Partial Thromboplastin Time 37.7 sec (22.0-30.0); Prothrombin Time 38.5 sec (9.0-12.0)
[2021-10-18 01:56] LABS: African American GFR (CKD) >90 (>60 ml/min/1.73 sqM); Anion Gap 10 mmol/L; Blood Urea Nitrogen 47 mg/dL (9-20); Calcium 8.7 mg/dL (8.4-10.2); Carbon Dioxide 26 mmol/L (22-30); Chloride 99 mmol/L (98-107); Glucose 146 mg/dL (74-99); Non-African American GFR(CKD) 86 (>60 ml/min/1.73 sqM); Potassium 4.5 mmol/L (3.5-5.1); Sodium 135 mmol/L (137-145)
--- NOTE | 2021-10-18 02:51 | XR ---
EXAMINATION TYPE: XR femur LT DATE OF EXAM: 10/18/2021 COMPARISON: NONE HISTORY: Leg pain TECHNIQUE: 4 views FINDINGS: There is nondisplaced intertrochanteric fracture left femur. There is coxa vera mild deform ity. There is vascular calcification. Knee joint appears intact IMPRESSION: Acute intertrochanteric fracture left femur.
--- NOTE | 2021-10-18 02:55 | XR ---
EXAMINATION TYPE: XR chest 1V DATE OF EXAM: 10/18/2021 COMPARISON: 09/22/2021 HISTORY: Weakness. Hip fracture. TECHNIQUE: Single view FINDINGS: Heart is enlarged. There is no heart failure. Costophrenic angles are clear. There are no h ilar masses. Thoracic aorta is atheromatous. There are sternal wires. IMPRESSION: No active cardiopulmonary disease. Mild cardiomegaly. No change. Mild fibrotic changes le ft lower lobe.
[2021-10-18] MEDS: SODIUM CHLORIDE 0.9% 1,000 ML IV SCH ×3 (05:37→22:57)
[2021-10-18] MEDS: IPRATROPIUM-ALBUTEROL 3 ML NEB INHALATION PRN (08:01)
[2021-10-18] MEDS: HYDROcodone/APAP 5-325MG 1 EACH TAB PO PRN (08:08)
[2021-10-18 08:33] LABS: Glucose,Whole Blood 149 mg/dL (75-99)
[2021-10-18] MEDS: INSULIN ASPART (NovoLOG) 100 UNIT/ML VIAL SQ SCH ×4 (08:45→21:35)
[2021-10-18] MEDS ORDERED: hydroCHLOROthiazide 25 MG TAB PO SCH (09:00)
[2021-10-18] MEDS ORDERED: metFORMIN 500 MG TAB PO SCH (09:00)
[2021-10-18] MEDS ORDERED: LOSARTAN 50 MG TAB PO SCH (09:00)
[2021-10-18] MEDS ORDERED: traMADol 50 MG TAB PO PRN (10:49)
[2021-10-18] MEDS ORDERED: PHYTONADIONE ORAL 5 MG/5 ML ORAL.SYRG PO STA (10:51)
[2021-10-18] MEDS ORDERED: MORPHINE SULFATE 2 MG/ML SYRINGE IVP PRN (10:52)
--- NOTE | 2021-10-18 10:58 | P.HPIM ---
History of Present Illness 85-year-old male came in after a mechanical falls from [facility]. Patient had a fracture of the left hip. Patient is going for surgery today patient does have history of atrial fibrillation on Coumadin with INR of around 4 for which we are giving vitamin K patient functional status is less than 4 metastases uses a walker. Patient didn't does have history of coronary artery disease and do not have any current EKG available patient had a normal ejection fraction with the moderate to severe pulmonary hypertension. Patient wasn't a doesn't have any chest pain or shortness of breath. Pain is fairly well controlled at this time REVIEW OF SYSTEMS: CONSTITUTIONAL: No fever, no malaise, no fatigue. HEENT: No recent visual problems or hearing problems. Denied any sore throat. CARDIOVASCULAR: No chest pain, orthopnea, PND, no palpitations, no syncope. PULMONARY: No shortness of breath, no cough, no hemoptysis. GASTROINTESTINAL: No diarrhea, no nausea, no vomiting, no abdominal pain. NEUROLOGICAL: No headaches, no weakness, no numbness. HEMATOLOGICAL: Denies any bleeding or petechiae. GENITOURINARY: Denies any burning micturition, frequency, or urgency. MUSCULOSKELETAL/RHEUMATOLOGICAL: As mentioned in HPI ENDOCRINE: Denies any polyuria or polydipsia. The rest of the 14-point review of systems is negative. PHYSICAL EXAMINATION: GENERAL: The patient is alert and oriented x3, not in any acute distress. Well developed, well nourished. HEENT: Pupils are round and equally reacting to light. EOMI. No scleral icterus. No conjunctival pallor. Normocephalic, atraumatic. No pharyngeal erythema. No thyromegaly. CARDIOVASCULAR: S1 and S2 present. No murmurs, rubs, or gallops. PULMONARY: Chest is clear to auscultation, no wheezing or crackles. ABDOMEN: Soft, nontender, nondistended, normoactive bowel sounds. No palpable organomegaly. MUSCULOSKELETAL: Deferred to orthopedic surgery EXTREMITIES: No cyanosis, clubbing, or pedal edema. NEUROLOGICAL: Gross neurological examination did not reveal any focal deficits. SKIN: No rashes. Assessment and plan -Left hip fracture: Preoperative evaluation: Patient is a moderate to high risk for surgery because of his functionality, coronary artery disease history and the moderate to severe pulmonary hypertension same risk was discussed with the patient as this improves his functionality no matter what the risk is patient probably should go for the surgery and patient is agreeable with that. -Atrial fibrillation on Coumadin with suprapubic and patient will be given 5 mg of vitamin K with repeat INR tomorrow -Hyperlipidemia -Hypertension -Type 2 diabetes mellitus and off on metformin and patient will be started on sliding scale insulin continue with the Januvia. -Coronary artery disease with a chronic catheterization and stents in the past DVT prophylaxis: Patient INR is supratherapeutic at this time patient need to be resumed on Coumadin to surgery and can be started on the same day. Past Medical History Past Medical History: Atrial Fibrillation, Coronary Artery Disease (CAD), Diabetes Mellitus, Hearing Disorder / Deafness, Hyperlipidemia, Hypertension Additional Past Medical History / Comment(s): Pt recently admitted to [facility] on 09/22/21 with gross hematuria/coumadin coagulopathy/acute blood loss anemia, possible UTI. 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 History of Any Multi-Drug Resistant Organisms: None Reported Past Surgical History: Appendectomy, Coronary Bypass/CABG, Heart Catheterization, Hernia Repair, Orthopedic Surgery Additional Past Surgical History / Comment(s): 12/23/07 CABG 4 vessel, thoracentesis x 4 after CABG, DIGNA, EGD, colonoscopies with benign polypectomy, L leg varicose vein stripping, sinus surgery, bilateral inguinal hernia repairs, R ankle with plate/screws. Past Anesthesia/Blood Transfusion Reactions: No Reported Reaction Past Psychological History: No Psychological Hx Reported Additional Psychological History / Comment(s): Pt currently at [facility] for rehab. Pt was getting up and into wheelchair but recently has been staying in bed. Smoking Status: Former smoker Past Alcohol Use History: Occasional Additional Past Alcohol Use History / Comment(s): Pt started smoking in 1949 and quit in 1992. Pt drank an occasional beer. Past Drug Use History: None Reported - Past Family History Father Family Medical History: Cancer Additional Family Medical History / Comment(s): Lymphoma Mother Family Medical History: Myocardial Infarction ([place]) Additional Family Medical History / Comment(s): Mother had heart problems and a CT. She lived to be 83 yrs old. Medications and Allergies Home Medications Medication Instructions Recorded Confirmed Type Aspirin EC [Ecotrin Low Dose] 81 mg PO DAILY@0903/06/19 10/17/21 History Omeprazole 20 mg PO DAILY@0903/06/19 10/17/21 History Pravastatin Sodium [Pravachol] 40 mg PO HS@209903/06/19 10/17/21 History hydroCHLOROthiazide 25 mg PO DAILY@89903/06/19 10/17/21 History sitaGLIPtin PHOS/metFORMIN HCL 1 tab PO BID@899,209903/06/19 10/17/21 History [Janumet 50-500 mg Tablet] Cholecalciferol [Vitamin D3 (25 25 mcg PO DAILY@89909/22/21 10/17/21 History Mcg = 1000 Iu)] Empagliflozin [Jardiance] 10 mg PO HS@209909/22/21 10/17/21 History Ipratropium-Albuterol Nebulize 3 ml INHALATION RT-QID PRN ml 09/27/21 10/17/21 Rx [Duoneb 0.5 mg-3 mg/3 ml Soln] Acetaminophen Tab [Tylenol] 650 mg PO Q4H PRN 10/17/21 10/17/21 History HYDROcodone/APAP 5-325MG [[place] 1 tab PO TID PRN 10/17/21 10/17/21 History 5-325] Insulin Lispro [humaLOG Kwikpen] See Protocol SQ QID 10/17/21 10/17/21 History Losartan [Cozaar] 100 mg PO DAILY@89910/17/21 10/17/21 History Metoprolol Tartrate [Lopressor] 75 mg PO BID@899,209910/17/21 10/17/21 History Nystatin 100,000 Unit/gm Powd 1 applic TOPICAL BID 10/17/21 10/17/21 History [Mycostatin Powder] Verapamil HCl [Verapamil ER] 180 mg PO HS@209910/17/21 10/17/21 History Warfarin [Coumadin] 1 mg PO MOWEFR@209910/17/21 10/17/21 History Warfarin [Coumadin] 1.5 mg PO SUTUTHSA@209910/17/21 10/17/21 History Allergies Allergy/AdvReac Type Severity Reaction Status Date / Time No Known Allergies Allergy Verified 10/17/21 23:20 Physical Exam Vitals: Vital Signs Temp Pulse Resp BP Pulse Ox 10/18/21 10:41 87 20 136/67 95 10/18/21 08:09 86 16 10/18/21 08:01 102 H 18 10/18/21 06:00 97.7 F 73 22 132/74 96 10/18/21 01:02 71 18 130/57 94 L 10/17/21 22:20 97.7 F 72 16 151/70 93 L Intake and Output 10/17/21 10/18/21 10/18/21 22:59 06:59 14:59 Other: Weight 79.379 kg Results CBC & Chem 7: 10/18/21 01:27 10/18/21 01:27 Labs: Abnormal Lab Results - Last 24 Hours (Table) 10/18/21 10/18/21 10/18/21 Range/Units 01:27 01:27 01:27 WBC 13.7 H (3.8-10.6) k/uL Hgb 12.9 L (13.0-17.5) gm/dL Hct 37.9 L (39.0-53.0) % RDW 16.9 H (11.5-15.5) % Neutrophils # 11.7 H (1.3-7.7) k/uL Lymphocytes # 0.9 L (1.0-4.8) k/uL PT 38.5 H (9.0-12.0) sec INR 4.0 H (<1.2) APTT 37.7 H (22.0-30.0) sec Sodium 135 L (137-145) mmol/L BUN 47 H (9-20) mg/dL Glucose 146 H (74-99) mg/dL POC Glucose (mg/dL) (75-99) mg/dL 10/18/21 Range/Units 08:31 WBC (3.8-10.6) k/uL Hgb (13.0-17.5) gm/dL Hct (39.0-53.0) % RDW (11.5-15.5) % Neutrophils # (1.3-7.7) k/uL Lymphocytes # (1.0-4.8) k/uL PT (9.0-12.0) sec INR (<1.2) APTT (22.0-30.0) sec Sodium (137-145) mmol/L BUN (9-20) mg/dL Glucose (74-99) mg/dL POC Glucose (mg/dL) 149 H (75-99) mg/dL
--- NOTE | 2021-10-18 12:13 | P.HPOR ---
History of Present Illness H&P Date: 10/18/21 This patient is an 85-year old male with a past medical history of atrial fibrillation on Coumadin, coronary artery disease with history of CABG, hypertension, hyperlipidemia, diabetes that presented to [facility] ED yesterday via EMS coming from [facility] with complaints of left hip pain. April ent's and [id number] are bedside and provide history. Patient's states patient was recently inpatient for evaluation of hematuria. He was discharged to [facility] on 09/27/21. Patient's states he had a fall at home prior to this admission, about 4 weeks ago. Patient was complaining of pain in the left hip following this fall, although was able to ambulate. Patient ambulates with a walker at baseline. Patient's states over the past few weeks, his hip pain has increased until he was unable to ambulate or get out of bed at [facility]. Per ER note, x-rays of the left hip were performed at the nursing facility and were negative. This imaging is not available for review at this time. He was brought to emergency department for CT of the left hip. CT scan of the left hip revealed an acute displaced left intertrochanteric hip fracture. Patient was admitted under the care of Dr. Frey with a consult placed to internal medicine. Patient's INR is 4.0 on admission. On examination in the emergency department, patient is complaining of isolated left hip pain. He has no additional complaints. Vital signs stable. 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 Past Anesthesia/Blood Transfusion Reactions: No Reported Reaction Past Psychological History: No Psychological Hx Reported Smoking Status: Former smoker Past Alcohol Use History: Occasional Past Drug Use History: None Reported - Past Family History Father Family Medical History: Cancer Additional Family Medical History / Comment(s): Lymphoma Mother Family Medical History: Myocardial Infarction (AL) Additional Family Medical History / Comment(s): Mother had heart problems and a AL. She lived to be 83 yrs old. Medications and Allergies Home Medications Medication Instructions Recorded Confirmed Type Aspirin EC [Ecotrin Low Dose] 81 mg PO DAILY@0903/06/19 10/17/21 History Omeprazole 20 mg PO DAILY@89903/06/19 10/17/21 History Pravastatin Sodium [Pravachol] 40 mg PO HS@209903/06/19 10/17/21 History hydroCHLOROthiazide 25 mg PO DAILY@89903/06/19 10/17/21 History sitaGLIPtin PHOS/metFORMIN HCL 1 tab PO BID@00,209903/06/19 10/17/21 History [Janumet 50-500 mg Tablet] Cholecalciferol [Vitamin D3 (25 25 mcg PO DAILY@89909/22/21 10/17/21 History Mcg = 1000 Iu)] Empagliflozin [Jardiance] 10 mg PO HS@209909/22/21 10/17/21 History Ipratropium-Albuterol Nebulize 3 ml INHALATION RT-QID PRN ml 09/27/21 10/17/21 Rx [Duoneb 0.5 mg-3 mg/3 ml Soln] Acetaminophen Tab [Tylenol] 650 mg PO Q4H PRN 10/17/21 10/17/21 History HYDROcodone/APAP 5-325MG [Grayling 1 tab PO TID PRN 10/17/21 10/17/21 History 5-325] Insulin Lispro [humaLOG Kwikpen] See Protocol SQ QID 10/17/21 10/17/21 History Losartan [Cozaar] 100 mg PO DAILY@0910/17/21 10/17/21 History Metoprolol Tartrate [Lopressor] 75 mg PO BID@0900,209910/17/21 10/17/21 History Nystatin 100,000 Unit/gm Powd 1 applic TOPICAL BID 10/17/21 10/17/21 History [Mycostatin Powder] Verapamil HCl [Verapamil ER] 180 mg PO HS@209910/17/21 10/17/21 History Warfarin [Coumadin] 1 mg PO MOWEFR@209910/17/21 10/17/21 History Warfarin [Coumadin] 1.5 mg PO SUTUTHSA@2100 10/17/21 10/17/21 History Allergies Allergy/AdvReac Type Severity Reaction Status Date / Time No Known Allergies Allergy Verified 10/17/21 23:20 Physical Examination On examination, the patient is lying in bed in no apparent distress. He is alert and answer questions appropriately. His and [id number] are at bedside. His head appears normocephalic and atraumatic. His breathing appears non-labored. On inspection of the bilateral upper extremities, there are no obvious deformities or signs of trauma. On inspection of the right lower extremity, there are no obvious deformities or signs of trauma. There is no pain with passive range of motion of the right hip, knee. Motor and sensory function is intact of the right lower extremity. Right lower extremities were well perfused. Calf soft and nontender to palpation. On inspection of the left lower extremity, the extremity is shortened and externally rotated. There is severe pain with any attempts at passive [id number] of the left hip. Patient has good strength and range of motion of the left ankle. Motor and sensory function is intact of the left lower extremity. After self-paced multiple 2. Left lower extremities warm and well perfused with brisk capillary refill distally. Calf soft and nontender to palpation. Results Pelvis CT scan 10/18/21: Acute displaced left intertrochanteric hip fracture. - Labs Labs: Abnormal Lab Results - Last 24 Hours (Table) 10/18/21 10/18/21 10/18/21 Range/Units 01:27 01:27 01:27 WBC 13.7 H (3.8-10.6) k/uL Hgb 12.9 L (13.0-17.5) gm/dL Hct 37.9 L (39.0-53.0) % RDW 16.9 H (11.5-15.5) % Neutrophils # 11.7 H (1.3-7.7) k/uL Lymphocytes # 0.9 L (1.0-4.8) k/uL PT 38.5 H (9.0-12.0) sec INR 4.0 H (<1.2) APTT 37.7 H (22.0-30.0) sec Sodium 135 L (137-145) mmol/L BUN 47 H (9-20) mg/dL Glucose 146 H (74-99) mg/dL POC Glucose (mg/dL) (75-99) mg/dL 10/18/21 Range/Units 08:31 WBC (3.8-10.6) k/uL Hgb (13.0-17.5) gm/dL Hct (39.0-53.0) % RDW (11.5-15.5) % Neutrophils # (1.3-7.7) k/uL Lymphocytes # (1.0-4.8) k/uL PT (9.0-12.0) sec INR (<1.2) APTT (22.0-30.0) sec Sodium (137-145) mmol/L BUN (9-20) mg/dL Glucose (74-99) mg/dL POC Glucose (mg/dL) 149 H (75-99) mg/dL H & H 10/18/21 Range/Units 01:27 Hgb 12.9 L (13.0-17.5) gm/dL Hct 37.9 L (39.0-53.0) % Coagulation 10/18/21 Range/Units 01:27 INR 4.0 H (<1.2) Result Diagrams: 10/18/21 01:27 10/18/21 01:27 Assessment and Plan Assessment: Displaced left intertrochanteric hip fracture Plan: - Clinical and imaging findings were discussed with the patient. The patient was discussed in detail with Dr. Frey. Recommend surgical fixation of the patient's left intertrochanteric hip fracture with a short gamma nail. The risks were discussed with the patient and his , [id number] and they gave verbal consent to go forward with surgery. - Patient's INR is 4.0 on admission. Will defer vitamin K administration to internal medicine. Internal medicine has been consulted for pre-operative medical clearance. - Non-weight bearing left lower extremity. - Pain management as needed. - We will plan for surgery tomorrow afternoon, pending medical clearance and INR level. NPO diet at midnight.
[2021-10-18] MEDS: ASPIRIN 81 MG PO SCH (12:22)
[2021-10-18] MEDS: LINAGLIPTIN 5 MG TABLET PO SCH (12:25)
[2021-10-18] MEDS: PANTOPRAZOLE 40 MG TABLET PO SCH (12:25)
[2021-10-18] MEDS: METOPROLOL TARTRATE 25 MG TAB PO SCH ×2 (12:25→19:57)
[2021-10-18 12:29] LABS: Glucose,Whole Blood 162 mg/dL (75-99)
[2021-10-18 13:13] VITALS: BMI 24.4
[2021-10-18 17:19] LABS: Glucose,Whole Blood 174 mg/dL (75-99)
[2021-10-18] MEDS: NON FORMULARY DRUG (Empagliflozin [Jardiance] 10 MG Tablet) PO SCH (19:57)
[2021-10-18] MEDS: PRAVASTATIN SODIUM 40 MG TAB PO SCH (19:58)
[2021-10-18] MEDS: VERAPAMIL SR 180 MG TABLET.ER PO SCH (19:58)
[2021-10-18 20:57] LABS: Glucose,Whole Blood 222 mg/dL (75-99)
[2021-10-18] MEDS ORDERED: WARFARIN 1.5 MG TAB PO SCH (21:00)
[2021-10-19] MEDS: LINAGLIPTIN 5 MG TABLET PO SCH (07:36)
[2021-10-19] MEDS: ASPIRIN 81 MG PO SCH (07:41)
[2021-10-19] MEDS: PANTOPRAZOLE 40 MG TABLET PO SCH (07:41)
[2021-10-19 07:42] LABS: Glucose,Whole Blood 136 mg/dL (75-99)
[2021-10-19] MEDS: METOPROLOL TARTRATE 25 MG TAB PO SCH ×2 (07:42→21:42)
[2021-10-19] MEDS: LOSARTAN 50 MG TAB PO SCH (07:42)
[2021-10-19 08:14] LABS: INR 1.6 (<1.2)
[2021-10-19 08:22] LABS: African American GFR (CKD) >90 (>60 ml/min/1.73 sqM); Anion Gap 9 mmol/L; Blood Urea Nitrogen 31 mg/dL (9-20); Calcium 8.7 mg/dL (8.4-10.2); Carbon Dioxide 28 mmol/L (22-30); Chloride 102 mmol/L (98-107); Glucose 144 mg/dL (74-99); Magnesium 1.5 mg/dL (1.6-2.3); Non-African American GFR(CKD) 84 (>60 ml/min/1.73 sqM); Potassium 3.7 mmol/L (3.5-5.1); Sodium 139 mmol/L (137-145)
[2021-10-19 08:59] LABS: Anisocytosis Slight; HCT 40.5 % (39.0-53.0); HGB 12.9 gm/dL (13.0-17.5); Hypochromasia Slight; MCH 29.2 pg (25.0-35.0); MCHC 31.8 g/dL (31.0-37.0); Mean Platelet Volume 8.4; Platelet Count 253 k/uL (150-450); RBC 4.42 m/uL (4.30-5.90); RDW 16.9 % (11.5-15.5); WBC 14.3 k/uL (3.8-10.6)
[2021-10-19 09:35] LABS: MCV 91.8 fL (80.0-100.0)
[2021-10-19] MEDS ORDERED: TRANEXAMIC ACID 1,000 MG in SODIUM CHLORIDE 0.9% 100 ML IVPB ONE ×4 (11:53)
[2021-10-19 12:43] LABS: Glucose,Whole Blood 153 mg/dL (75-99)
[2021-10-19] MEDS: INSULIN ASPART (NovoLOG) 100 UNIT/ML VIAL SQ SCH ×2 (13:00→17:32)
[2021-10-19] MEDS ORDERED: IV FLUID CONTINUATION 1,000 ML IV ONE (15:30)
[2021-10-19] MEDS: SODIUM CHLORIDE 0.9% 1,000 ML IV SCH (16:19)
[2021-10-19] MEDS ORDERED: NEOSTIGMINE 1 MG/ML 10 ML VIAL ONE (16:40)
[2021-10-19] MEDS ORDERED: SUCCINYLCHOLINE CHLORIDE 100 MG/5 ML SYR IV ONE (16:40)
[2021-10-19] MEDS ORDERED: ROCURONIUM 10 MG/ML (5 ML VIAL) IV ONE (16:40)
[2021-10-19] MEDS ORDERED: PROPOFOL 10 MG/ML 20 ML VIAL IV ONE (16:40)
[2021-10-19] MEDS ORDERED: LIDOCAINE 1% INJ 10MG/ML (20 ML MDV) ONE (16:40)
[2021-10-19] MEDS ORDERED: .fentaNYL (PF) 50 MCG/ML 2 ML AMP ONE (16:40)
[2021-10-19] MEDS ORDERED: GLYCOPYRROLATE 0.2 MG/ML 2 ML VIAL ONE (16:40)
--- NOTE | 2021-10-19 18:20 | XR ---
EXAMINATION TYPE: XR Hip Limited LT DATE OF EXAM: 10/19/2021 COMPARISON: Yesterday HISTORY: Hip surgery FINDINGS: There was 73 seconds of fluoroscopy time recorded. There is intramedullary philipp and transverse screw f ixing the intertrochanteric fracture of the left femur. Fragments are in anatomic position. IMPRESSION: No complicating process seen.
[2021-10-19] MEDS ORDERED: ONDANSETRON 4 MG/2 ML VIAL IVP PRN (18:24)
--- NOTE | 2021-10-19 18:38 | P.OP ---
Date of Procedure: 10/19/21 Preoperative Diagnosis: 1. Left age indeterminant intertrochanteric hip fracture 2. Atrial Fibrillation on Coumadin 3. Type 2 diabetes 4. Dementia 5. Heart disease with history of CABG 6. Hypertension Postoperative Diagnosis: Same Procedure(s) Performed: Operative fixation of left intertrochanteric hip fracture with short intramedullary hip screw Anesthesia: AL Surgeon: Reji Frey Compounding Pharmacy Technician #1: Sandeep Fuentes Estimated Blood Loss (ml): 100 IV fluids (ml): 1,000 Pathology: none sent Condition: stable Disposition: PACU Indications for Procedure: The patient is a very pleasant 85-year-old male with multiple medical problems including dementia, coronary artery disease, atrial fibrillation on Coumadin, and multiple falls who developed increasing pain in the left hip and an inability to ambulate over the last several weeks. According to the patient's family he may have had a fall but there is no documented event where he injured his left hip. He was at a long-term and had increasing pain and deformity in his left hip so he was sent to our ER for x-rays and a CAT scan. In the emergency department he was found to have a displaced intertrochanteric hip fracture. He was admitted under my care. Internal medicine was consulted to manage his medical issues and clear him for surgery. He was given vitamin K to correct his INR and ultimately cleared for surgery. I met with the patient, his , and his granddaughters to discuss treatment. We discussed operative fixation with an intramedullary hip screw. We discussed potential risks and complications of surgery including but certainly not limited to risks from anesthesia, infection, delayed wound healing, nonunion, malunion, hardware failure, collapse, periprosthetic fracture, DVT, PE, other medical complications, and possibly . The patient and his family understand that is higher risk having a complication due to his advanced age and multiple medical comorbidities. He also acknowledges that other is common complications are possible. They provided their verbal and written consent to go forward with surgery. Description of Procedure: The patient was identified in preoperative holding and the correct left leg was marked with my initials. I reviewed the consent form with the patient and his family. All their questions were answered. The patient was then brought back to the operating room. He was given a general anesthetic, preoperative antibiotics, and tranexamic acid on the gurney. Boots for Toshia table were placed. The patient was then carefully transferred onto a hand table. A p erineal post was placed and all bony prominences well-padded. A timeout was performed identifying the correct patient, operative extremity, and procedure. Fluoroscopy was brought in and a closed reduction was performed through the Toshia table using longitudinal traction, internal rotation, and adduction of the leg. The contralateral right leg was scissored to allow lateral imaging. Once the hip was reduced and verified to be reduced with biplanar fluoroscopy the left leg was prepped and draped in the standard sterile fashion. I began by making a 3 cm longitudinal incision just proximal to the greater trochanter in line with the femur. Dissection was carried down to the fascia. An awl was placed just medial to the tip of the greater trochanter on the AP view and centered with the shaft of the femur on the lateral view. It was gently advanced into the canal the femur. A ball-tipped guidewire was then placed through the awl into the canal the femur. An opening reamer was then us ed with a soft tissue sleeve to gain entrance to the canal. I then reamed up to a 12.5 mm reamer to make sure the distal aspect of the short nail would not get stuck in the canal. A short nail was then dispensed and hooked up to the targeting arm. I verified that all slots of the nail lined up with their corresponding trochars. The short nail was then gently inserted over the guidewire and fully seated. The ball-tipped K wire was removed. The trocar for the lag screw was placed in the targeting arm and an incision was made through the skin and fascia down to the lateral cortex of the femur. A guidepin was placed in the low center position on the AP view and centered in the femoral head on the lateral view. It was measured, reamed, and a harshly threaded lag screw was placed over the guidepin. A set screw was placed proximally. A distal interlocking screw was placed through the targeting arm through a third small incision the lateral skin. The targeting arm was removed proximally. Final fluoroscopic images were taken. All wounds were thoroughly irrigated and closed in layers. Sterile dressings were applied. The patient was then taken off the Toshia table, transferred to a gurney, extubated, and brought to recovery having tolerated the procedure well. Sandeep Fuentes PA-C was required as a skilled senior assistant manager throughout the procedure due to the complexity of the case. Plan: The patient can weight-bear as tolerated on his left leg. He will need 2 doses of postoperative antibiotics. He can resume Coumadin tomorrow for DVT prophylaxis. Internal medicine for perioperative medical management. Discharge planning in process.
--- NOTE | 2021-10-19 19:56 | P.PN ---
Subjective Progress Note Date: 10/19/21 Principal diagnosis: Left intertrochanteric hip fracture Status post fixation of left intertrochanteric hip fracture with short intermedullary hip screw 85-year-old male came in after a mechanical falls from [facility]. Patient had a fracture of the left hip. Patient is going for surgery today patient does have history of atrial fibrillation on Coumadin with INR of around 4 for which we are giving vitamin K patient functional status is less than 4 metastases uses a walker. Patient didn't does have history of coronary artery disease and do not have any current EKG available patient had a normal ejection fraction with the moderate to severe pulmonary hypertension. Patient wasn't a doesn't have any chest pain or shortness of breath. Pain is fairly well controlled at this time 10/19/2021 Patient is seen and evaluated in room at bedside Status post operative fixation of left intertrochanteric hip fracture that short intramedullary hip screw; patient admitted with age undetermined left intertrochanteric hip fracture Vital signs are reviewed and stable with temperature 97.4, pulse 58, respiration 14 and blood pressure of 125/50 Lab review shows WBC 14.3, hemoglobin of 12.9, platelet count of 253, INR 1.6, sodium 139, potassium 3.7, BUN/creatinine of 31/0.74 Orthopedic surgery recommending weightbearing as tolerated; 2 doses of postoperative antibiotics are recommended; patient can resume home dose of Coumadin in next 24 hours Objective - Vital Signs Vital signs: Vital Signs Temp 97.4 F L 10/19/21 18:25 Pulse 67 10/19/21 19:18 Resp 28 H 10/19/21 19:18 BP 175/84 10/19/21 19:18 Pulse Ox 97 10/19/21 19:18 Intake & Output 10/19/21 10/19/21 10/20/21 06:59 18:59 06:59 Intake Total 650 Output Total 0 680 Balance 0 -30 Weight 79.379 kg 79.379 kg Intake: IV 650 Output: Urine 580 Emesis 0 Estimated Blood Loss 100 Other: Voiding Method Indwelling Catheter Indwelling Catheter - Exam GENERAL: The patient is alert and oriented x3, not in any acute distress. Well developed, well nourished. HEENT: Pupils are round and equally reacting to light. EOMI. No scleral icterus. No conjunctival pallor. Normocephalic, atraumatic. No pharyngeal erythema. No thyromegaly. CARDIOVASCULAR: S1 and S2 present. No murmurs, rubs, or gallops. PULMONARY: Chest is clear to auscultation, no wheezing or crackles. ABDOMEN: Soft, nontender, nondistended, normoactive bowel sounds. No palpable organomegaly. MUSCULOSKELETAL: Deferred to orthopedic surgery EXTREMITIES: No cyanosis, clubbing, or pedal edema. NEUROLOGICAL: Gross neurological examination did not reveal any focal deficits. SKIN: No rashes. - Labs CBC & Chem 7: 10/19/21 06:51 10/19/21 06:51 Labs: Abnormal Lab Results - Last 24 Hours (Table) 10/18/21 10/19/21 10/19/21 Range/Units 20:56 06:51 06:51 WBC 14.3 H (3.8-10.6) k/uL Hgb 12.9 L (13.0-17.5) gm/dL RDW 16.9 H (11.5-15.5) % PT (9.0-12.0) sec INR (<1.2) BUN 31 H (9-20) mg/dL Glucose 144 H (74-99) mg/dL POC Glucose (mg/dL) 222 H (75-99) mg/dL Magnesium 1.5 L (1.6-2.3) mg/dL 10/19/21 10/19/21 10/19/21 Range/Units 06:51 07:40 12:41 WBC (3.8-10.6) k/uL Hgb (13.0-17.5) gm/dL RDW (11.5-15.5) % PT 16.0 H (9.0-12.0) sec INR 1.6 H (<1.2) BUN (9-20) mg/dL Glucose (74-99) mg/dL POC Glucose (mg/dL) 136 H 153 H (75-99) mg/dL Magnesium (1.6-2.3) mg/dL Assessment and Plan Assessment: Assessment and plan -Left hip fracture: Preoperative evaluation: Patient is a moderate to high risk for surgery because of his functionality, coronary artery disease history and the moderate to severe pulmonary hypertension same risk was discussed with the patient as this improves his functionality no matter what the risk is patient probably should go for the surgery and patient is agreeable with that. -Atrial fibrillation on Coumadin with suprapubic and patient will be given 5 mg of vitamin K with repeat INR tomorrow -Hyperlipidemia -Hypertension -Type 2 diabetes mellitus and off on metformin and patient will be started on sliding scale insulin continue with the Januvia. -Coronary artery disease with a chronic catheterization and stents in the past DVT prophylaxis: Patient INR is supratherapeutic at this time patient need to be resumed on Coumadin to surgery and can be started on the same day.
[2021-10-19 20:24] LABS: HCT 40.2 % (39.0-53.0); HGB 12.6 gm/dL (13.0-17.5); MCH 28.9 pg (25.0-35.0); MCHC 31.4 g/dL (31.0-37.0); Mean Platelet Volume 8.2; Platelet Count 237 k/uL (150-450); RBC 4.37 m/uL (4.30-5.90); RDW 16.5 % (11.5-15.5); WBC 16.6 k/uL (3.8-10.6)
[2021-10-19 20:25] LABS: Anisocytosis Slight; Basophils # (A) 0.1 k/uL (0-0.2); Basophils % (A) 0 %; Eosinophils # (A) 0.1 k/uL (0-0.7); Eosinophils % (A) 1 %; Hypochromasia Moderate; Lymphocytes # (A) 0.7 k/uL (1.0-4.8); Lymphocytes % (A) 4 %; Monocytes # (A) 0.8 k/uL (0-1.0); Monocytes % (A) 5 %; Neutrophils # (A) 14.8 k/uL (1.3-7.7); Neutrophils % (A) 90 %
[2021-10-19 21:00] LABS: Glucose,Whole Blood 172 mg/dL (75-99)
[2021-10-19] MEDS ORDERED: WARFARIN 1 MG TAB PO SCH (21:00)
[2021-10-19] MEDS: NON FORMULARY DRUG (Empagliflozin [Jardiance] 10 MG Tablet) PO SCH (21:37)
[2021-10-19] MEDS: PRAVASTATIN SODIUM 40 MG TAB PO SCH (21:37)
[2021-10-19] MEDS: SENNOSIDES-DOCUSATE SODIUM 1 EACH TAB PO SCH (21:37)
[2021-10-19] MEDS: VERAPAMIL SR 180 MG TABLET.ER PO SCH (21:38)
[2021-10-19] MEDS: LACTATED RINGERS 1,000 ML IV SCH (21:40)
[2021-10-20] MEDS: LACTATED RINGERS 1,000 ML IV SCH ×2 (05:45→16:21)
[2021-10-20] MEDS: SODIUM CHLORIDE 0.9% 1,000 ML IV SCH ×2 (05:45→19:20)
--- NOTE | 2021-10-20 06:56 | FL ---
Fluoroscopy History: HARDWARE PLACEMENT 73 SEC FL
[2021-10-20 07:13] LABS: Glucose,Whole Blood 148 mg/dL (75-99)
[2021-10-20] MEDS: IPRATROPIUM-ALBUTEROL 3 ML NEB INHALATION PRN (08:38)
[2021-10-20] MEDS: INSULIN ASPART (NovoLOG) 100 UNIT/ML VIAL SQ SCH ×3 (09:30→17:48)
[2021-10-20] MEDS: LOSARTAN 50 MG TAB PO SCH (09:31)
[2021-10-20] MEDS: LINAGLIPTIN 5 MG TABLET PO SCH (09:31)
[2021-10-20] MEDS: METOPROLOL TARTRATE 25 MG TAB PO SCH ×2 (09:31→21:35)
[2021-10-20] MEDS: ASPIRIN 81 MG PO SCH (09:31)
[2021-10-20] MEDS: PANTOPRAZOLE 40 MG TABLET PO SCH (09:31)
--- NOTE | 2021-10-20 11:44 | P.PN ---
Subjective Progress Note Date: 10/20/21 This patient is an 85-year-old male who is status-post operative fixation of left intertrochanteric hip fracture with short gamma nail on 10/19/21. Today is post-operative day #1. The patient is seen and examined bedside. The patient states the pain in his left hip is well controlled. He has not yet been up with physical therapy. He states he overall feels well this morning. He denies chest pain, shortness of breath, nausea, vomiting. No new complaints. Vital signs stable. Objective - Vital Signs Vital signs: Vital Signs Temp 97.6 F 10/20/21 08:00 Pulse 88 10/20/21 08:50 Resp 18 10/20/21 08:00 BP 120/64 10/20/21 08:00 Pulse Ox 94 L 10/20/21 08:00 Intake & Output 10/19/21 10/20/21 10/20/21 18:59 06:59 18:59 Intake Total 650 Output Total 680 400 Balance -30 -400 Weight 79.379 kg 79.379 kg Intake: IV 650 Output: Urine 580 400 Estimated Blood Loss 100 Other: Voiding Method Indwelling Catheter Indwelling Catheter Indwelling Catheter - Exam On examination, the patient is lying in bed in no apparent distress. He is alert and oriented 2. On inspection of the left hip, there is clean, dry, intact surgical dressings in place with no bleeding or drainage through the dressings. There is mild swelling of the thigh. The thigh is soft and compressible. Motor and sensory function is intact of the left lower extremity. Dorsalis pedis pulse +2. Left lower extremity is warm and well perfused. Calf is soft and nontender to palpation. Lower extremity compression cuffs in place bilaterally. - Labs CBC & Chem 7: 10/19/21 20:12 10/19/21 06:51 Labs: Abnormal Lab Results - Last 24 Hours (Table) 10/19/21 10/19/21 10/19/21 Range/Units 12:41 20:12 20:58 WBC 16.6 H (3.8-10.6) k/uL Hgb 12.6 L (13.0-17.5) gm/dL RDW 16.5 H (11.5-15.5) % Neutrophils # 14.8 H (1.3-7.7) k/uL Lymphocytes # 0.7 L (1.0-4.8) k/uL POC Glucose (mg/dL) 153 H 172 H (75-99) mg/dL 10/20/21 Range/Units 07:12 WBC (3.8-10.6) k/uL Hgb (13.0-17.5) gm/dL RDW (11.5-15.5) % Neutrophils # (1.3-7.7) k/uL Lymphocytes # (1.0-4.8) k/uL POC Glucose (mg/dL) 148 H (75-99) mg/dL Assessment and Plan Assessment: Status-post operative fixation of left intertrochanteric hip fracture with short gamma nail on 10/19/21. Post-operative day #1. Plan: - Patient may weight bear as tolerated on operative leg. Up with assistance, up with a walker. - Keep dressings in place until tomorrow. Will plan for first dressing change tomorrow. - Physical therapy for gait and balance training. - Pain management as needed. - Patient may resume Coumadin when ok by internal medicine. - 2 doses of post-operative antibiotics complete. - Anticipate discharge back to [facility] within next 1-2 days.
[2021-10-20 12:58] LABS: Glucose,Whole Blood 181 mg/dL (75-99)
[2021-10-20 15:11] LABS: INR 1.6 (<1.2); Prothrombin Time 15.9 sec (9.0-12.0)
[2021-10-20 17:24] LABS: Glucose,Whole Blood 183 mg/dL (75-99)
--- NOTE | 2021-10-20 17:55 | P.PN ---
Subjective Progress Note Date: 10/20/21 Principal diagnosis: Left intertrochanteric hip fracture Status post fixation of left intertrochanteric hip fracture with short intermedullary hip screw 85-year-old male came in after a mechanical falls from [facility]. Patient had a fracture of the left hip. Patient is going for surgery today patient does have history of atrial fibrillation on Coumadin with INR of around 4 for which we are giving vitamin K patient functional status is less than 4 metastases uses a walker. Patient didn't does have history of coronary artery disease and do not have any current EKG available patient had a normal ejection fraction with the moderate to severe pulmonary hypertension. Patient wasn't a doesn't have any chest pain or shortness of breath. Pain is fairly well controlled at this time 10/19/2021 Patient is seen and evaluated in room at bedside Status post operative fixation of left intertrochanteric hip fracture that short intramedullary hip screw; patient admitted with age undetermined left intertrochanteric hip fracture Vital signs are reviewed and stable with temperature 97.4, pulse 58, respiration 14 and blood pressure of 125/50 Lab review shows WBC 14.3, hemoglobin of 12.9, platelet count of 253, INR 1.6, sodium 139, potassium 3.7, BUN/creatinine of 31/0.74 Orthopedic surgery recommending weightbearing as tolerated; 2 doses of postoperative antibiotics are recommended; patient can resume home dose of Coumadin in next 24 hours 10/20/2021 Patient is seen and evaluated in room at bedside; denies any specific complaints; P and remains controlled Vital signs are stable with temperature of 97.6, pulse 88, respiration 18 and blood pressure 120/64 Patient is status post fixation of left intertrochanteric hip fracture that short gamma nail on 10/19/2021 PT is consulted for evaluation and treatment Orthopedic on board and recommending weightbearing as tolerated on operative like an up with assistance and walker; patient will have for stress and change to her morning Has been cleared to resume Coumadin therapy by orthopedic surgery Objective - Vital Signs Vital signs: Vital Signs Temp 97.6 F 10/20/21 08:00 Pulse 88 10/20/21 08:50 Resp 18 10/20/21 08:00 BP 120/64 10/20/21 08:00 Pulse Ox 94 L 10/20/21 08:00 Intake & Output 10/19/21 10/20/2110/20/21 18:59 06:59 18:59 Intake Total 650 Output Total 680 400 Balance -30 -400 Weight 79.379 kg 79.379 kg Intake: IV 650 Output: Urine 580 400 Estimated Blood Loss 100 Other: Voiding Method Indwelling Catheter Indwelling Catheter Indwelling Catheter - Exam GENERAL: The patient is alert and oriented x3, not in any acute distress. Well developed, well nourished. HEENT: Pupils are round and equally reacting to light. EOMI. No scleral icterus. No conjunctival pallor. Normocephalic, atraumatic. No pharyngeal erythema. No thyromegaly. CARDIOVASCULAR: S1 and S2 present. No murmurs, rubs, or gallops. PULMONARY: Chest is clear to auscultation, no wheezing or crackles. ABDOMEN: Soft, nontender, nondistended, normoactive bowel sounds. No palpable organomegaly. MUSCULOSKELETAL: Deferred to orthopedic surgery EXTREMITIES: No cyanosis, clubbing, or pedal edema. NEUROLOGICAL: Gross neurological examination did not reveal any focal deficits. SKIN: No rashes. - Labs CBC & Chem 7: 10/19/21 20:12 10/19/21 06:51 Labs: Abnormal Lab Results - Last 24 Hours (Table) 10/19/21 10/19/21 10/20/21 Range/Units 20:12 20:58 07:12 WBC 16.6 H (3.8-10.6) k/uL Hgb 12.6 L (13.0-17.5) gm/dL RDW 16.5 H (11.5-15.5) % Neutrophils # 14.8 H (1.3-7.7) k/uL Lymphocytes # 0.7 L (1.0-4.8) k/uL POC Glucose (mg/dL) 172 H 148 H (75-99) mg/dL 10/20/21 Range/Units 12:56 WBC (3.8-10.6) k/uL Hgb (13.0-17.5) gm/dL RDW (11.5-15.5) % Neutrophils # (1.3-7.7) k/uL Lymphocytes # (1.0-4.8) k/uL POC Glucose (mg/dL) 181 H (75-99) mg/dL Assessment and Plan Assessment: Assessment and plan -Left hip fracture: Preoperative evaluation: Patient is a moderate to high risk for surgery because of his functionality, coronary artery disease history and the moderate to severe pulmonary hypertension same risk was discussed with the patient as this improves his functionality no matter what the risk is patient probably should go for the surgery and patient is agreeable with that. -Atrial fibrillation on Coumadin with suprapubic and patient will be given 5 mg of vitamin K with repeat INR tomorrow -Hyperlipidemia -Hypertension -Type 2 diabetes mellitus and off on metformin and patient will be started on sliding scale insulin continue with the Januvia. -Coronary artery disease with a chronic catheterization and stents in the past DVT prophylaxis: Patient INR is supratherapeutic at this time patient need to be resumed on Coumadin to surgery and can be started on the same day.
[2021-10-20] MEDS ORDERED: WARFARIN 1.5 MG TAB PO ONE (18:00)
[2021-10-20 20:05] LABS: Glucose,Whole Blood 235 mg/dL (75-99)
[2021-10-20] MEDS: NON FORMULARY DRUG (Empagliflozin [Jardiance] 10 MG Tablet) PO SCH (21:34)
[2021-10-20] MEDS: SENNOSIDES-DOCUSATE SODIUM 1 EACH TAB PO SCH (21:34)
[2021-10-20] MEDS: PRAVASTATIN SODIUM 40 MG TAB PO SCH (21:34)
[2021-10-20] MEDS: VERAPAMIL SR 180 MG TABLET.ER PO SCH (21:34)
[2021-10-21] MEDS: LACTATED RINGERS 1,000 ML IV SCH ×2 (00:55→12:23)
[2021-10-21 07:03] LABS: Glucose,Whole Blood 153 mg/dL (75-99)
[2021-10-21] MEDS: PANTOPRAZOLE 40 MG TABLET PO SCH (08:47)
[2021-10-21] MEDS: ASPIRIN 81 MG PO SCH (08:47)
[2021-10-21] MEDS: INSULIN ASPART (NovoLOG) 100 UNIT/ML VIAL SQ SCH ×2 (08:47→13:09)
[2021-10-21] MEDS: LOSARTAN 50 MG TAB PO SCH (08:47)
[2021-10-21] MEDS: METOPROLOL TARTRATE 25 MG TAB PO SCH (08:47)
[2021-10-21] MEDS: LINAGLIPTIN 5 MG TABLET PO SCH (08:47)
[2021-10-21] MEDS: SODIUM CHLORIDE 0.9% 1,000 ML IV SCH (08:48)
[2021-10-21 09:24] LABS: INR 1.8 (0.90-1.11); Prothrombin Time 19.8 sec (9.9-11.9)
[2021-10-21 12:02] LABS: Glucose,Whole Blood 189 mg/dL (75-99)
--- NOTE | 2021-10-21 13:53 | P.PN ---
Subjective Progress Note Date: 10/21/21 Principal diagnosis: Left intertrochanteric hip fracture Status post fixation of left intertrochanteric hip fracture with short intermedullary hip screw 85-year-old male came in after a mechanical falls from [facility]. Patient had a fracture of the left hip. Patient is going for surgery today patient does have history of atrial fibrillation on Coumadin with INR of around 4 for which we are giving vitamin K patient functional status is less than 4 metastases uses a walker. Patient didn't does have history of coronary artery disease and do not have any current EKG available patient had a normal ejection fraction with the moderate to severe pulmonary hypertension. Patient wasn't a doesn't have any chest pain or shortness of breath. Pain is fairly well controlled at this time 10/19/2021 Patient is seen and evaluated in room at bedside Status post operative fixation of left intertrochanteric hip fracture that short intramedullary hip screw; patient admitted with age undetermined left intertrochanteric hip fracture Vital signs are reviewed and stable with temperature 97.4, pulse 58, respiration 14 and blood pressure of 125/50 Lab review shows WBC 14.3, hemoglobin of 12.9, platelet count of 253, INR 1.6, sodium 139, potassium 3.7, BUN/creatinine of 31/0.74 Orthopedic surgery recommending weightbearing as tolerated; 2 doses of postoperative antibiotics are recommended; patient can resume home dose of Coumadin in next 24 hours 10/20/2021 Patient is seen and evaluated in room at bedside; denies any specific complaints; P and remains controlled Vital signs are stable with temperature of 97.6, pulse 88, respiration 18 and blood pressure 120/64 Patient is status post fixation of left intertrochanteric hip fracture that short gamma nail on 10/19/2021 PT is consulted for evaluation and treatment Orthopedic on board and recommending weightbearing as tolerated on operative like an up with assistance and walker; patient will have for stress and change to her morning Has been cleared to resume Coumadin therapy by orthopedic surgery 10/21/2021 Patient is seen and evaluated in room at bedside; denies any specific complaints Vital signs are reviewed and stable with temperature 98.2, pulse 54, respiration 18 and blood pressure 136/60 with O2 saturation of 94% Patient has been placed back on Coumadin with pharmacy dosing service and INR is at 1.8 this morning Patient is stable from orthopedic surgery standpoint; clinically stable medically to be discharged and Coumadin can be dosed at [facility] Objective - Vital Signs Vital signs: Vital Signs Temp 98.2 F 10/21/21 08:00 Pulse 54 L 10/21/21 08:00 Resp 18 10/21/21 08:00 BP 136/60 10/21/21 08:00 Pulse Ox 94 L 10/21/21 08:00 Intake & Output 10/20/21 10/21/21 10/21/21 18:59 06:59 18:59 Intake Total 160 168 Output Total 700 Balance -540 168 Weight 79.379 kg Intake: Oral 160 168 Output: Urine 700 Other: Voiding Method Indwelling Catheter Indwelling Catheter Indwelling Catheter - Exam GENERAL: The patient is alert and oriented x3, not in any acute distress. Well developed, well nourished. HEENT: Pupils are round and equally reacting to light. EOMI. No scleral icterus. No conjunctival pallor. Normocephalic, atraumatic. No pharyngeal erythema. No thyromegaly. CARDIOVASCULAR: S1 and S2 present. No murmurs, rubs, or gallops. PULMONARY: Chest is clear to auscultation, no wheezing or crackles. ABDOMEN: Soft, nontender, nondistended, normoactive bowel sounds. No palpable organomegaly. MUSCULOSKELETAL: Deferred to orthopedic surgery EXTREMITIES: No cyanosis, clubbing, or pedal edema. NEUROLOGICAL: Gross neurological examination did not reveal any focal deficits. SKIN: No rashes. - Labs CBC & Chem 7: 10/19/21 20:12 10/19/21 06:51 Labs: Abnormal Lab Results - Last 24 Hours (Table) 10/20/21 10/20/21 10/20/21 Range/Units 14:29 17:23 20:04 PT 15.9 H (9.0-12.0) sec INR 1.6 H (<1.2) POC Glucose (mg/dL) 183 H 235 H (75-99) mg/dL 10/21/21 10/21/21 10/21/21 Range/Units 05:47 07:01 12:00 PT 19.8 H (9.0-12.0) sec INR 1.80 H (<1.2) POC Glucose (mg/dL) 153 H 189 H (75-99) mg/dL Assessment and Plan Assessment: Assessment and plan -Left hip fracture: Preoperative evaluation: Patient is a moderate to high risk for surgery because of his functionality, coronary artery disease history and the moderate to severe pulmonary hypertension same risk was discussed with the patient as this improves his functionality no matter what the risk is patient probably should go for the surgery and patient is agreeable with that. -Atrial fibrillation on Coumadin with suprapubic and patient will be given 5 mg of vitamin K with repeat INR tomorrow -Hyperlipidemia -Hypertension -Type 2 diabetes mellitus and off on metformin and patient will be started on s liding scale insulin continue with the Januvia. -Coronary artery disease with a chronic catheterization and stents in the past DVT prophylaxis: Patient INR is supratherapeutic at this time patient need to be resumed on Coumadin to surgery and can be started on the same day.
--- NOTE | 2021-10-21 13:56 | P.DS ---
Providers Date of admission: 10/18/21 01:00 Expected date of discharge: 10/21/21 Attending physician: Reji Frey Consults: 10/18/21 01:01 Consult Physician Routine Consulting Provider: Michael Bolden Consult Reason/Comments: medical management Do you want consulting provider notified?: Yes Primary care physician: Farrah Evans [facility] Course: This is an 85-year-old male who is admitted to [facility] on 10/17/21 for left hip fracture. It is unknown when the patient sustained the left hip fracture. Patient has been experiencing left hip pain and decreased mobility for the past 4 weeks. X-rays performed at [facility] were apparently negative. Patient was brought to the [facility] emergency department on 10/17/[address] scan of the left hip, which revealed an acute left intertrochanteric hip fracture. He is admitted to our service for surgical intervention and care. Patient was taken to surgery for operative fixation of his left hip fracture with an intramedullary hip screw on 10/19/[address] Frey. The procedure was performed without complication or sequelae. The patient is doing fairly well postoperatively. Vital signs and labs are stable on postoperative day #2. Patient is seen and examined bedside this morning. He states he is having no pain in the left hip. He states he overall feels well and has no complaints or concerns. He denies chest pain, shortness of breath, nausea, vomiting, fevers, chills. On examination, the patient is lying in bed in no apparent distress. He is alert and oriented 2. On inspection of the left hip, there are clean, dry, and intact dressings in place. No bleeding or drainage through the dressings. There is mild swelling of the thigh. The thigh is soft and compressible. Motor and sensory function is intact to the left lower extremity. He has good strength and range of motion of the left ankle. Dorsalis pedis pulse +2, the left lower extremity is warm and well perfused with brisk capillary refill distally. Calf is soft and nontender to palpation. Bilateral lower extremity compression also in place. Patient is discharged back to [facility] today in good condition. Patient has been cleared by Dr. Rizo from a medical standpoint for discharge today. Patient will follow-up with Dr. Frey in the office in 2 weeks. Please see med rec for accurate list of discharge medication. Patient Condition at Discharge: Stable Plan - Discharge Summary Discharge Rx Participant: No New Discharge Prescriptions: No Action Pravastatin Sodium [Pravachol] 40 mg PO HS@2100 Omeprazole 20 mg PO DAILY@0900 hydroCHLOROthiazide 25 mg PO DAILY@0900 sitaGLIPtin PHOS/metFORMIN HCL [Janumet 50-500 mg Tablet] 1 tab PO BID@0900,2099 Aspirin EC [Ecotrin Low Dose] 81 mg PO DAILY@0900 Ipratropium-Albuterol Nebulize [Duoneb 0.5 mg-3 mg/3 ml Soln] 3 ml INHALATION RT-QID PRN ml PRN Reason: Shortness Of Breath Or Wheezing Insulin Lispro [humaLOG Kwikpen] See Protocol SQ QID HYDROcodone/APAP 5-325MG [[place] 5-325] 1 tab PO TID PRN PRN Reason: Pain Metoprolol Tartrate [Lopressor] 75 mg PO BID@0900,2099 Warfarin [Coumadin] 1.5 mg PO SUTUTHSA@2099 Warfarin [Coumadin] 1 mg PO MOWEFR@2099 Verapamil HCl [Verapamil ER] 180 mg PO HS@2100 Cholecalciferol [Vitamin D3 (25 Mcg = 1000 Iu)] 25 mcg PO DAILY@0900 Empagliflozin [Jardiance] 10 mg PO HS@2099 Acetaminophen Tab [Tylenol] 650 mg PO Q4H PRN PRN Reason: Pain Nystatin 100,000 Unit/gm Powd [Mycostatin Powder] 1 applic TOPICAL BID Losartan [Cozaar] 100 mg PO DAILY@0900 Discharge Medication List Aspirin EC [Ecotrin Low Dose] 81 mg PO DAILY@89903/06/19 [History] Omeprazole 20 mg PO DAILY@89903/06/19 [History] Pravastatin Sodium [Pravachol] 40 mg PO HS@209903/06/19 [History] hydroCHLOROthiazide 25 mg PO DAILY@89903/06/19 [History] sitaGLIPtin PHOS/metFORMIN HCL [Janumet 50-500 mg Tablet] 1 tab PO BID@0900,209903/06/19 [History] Cholecalciferol [Vitamin D3 (25 Mcg = 1000 Iu)] 25 mcg PO DAILY@0900 09/22/21 [History] Empagliflozin [Jardiance] 10 mg PO HS@209909/22/21 [History] Ipratropium-Albuterol Nebulize [Duoneb 0.5 mg-3 mg/3 ml Soln] 3 ml INHALATION RT-QID PRN ml 09/27/21 [Rx] Acetaminophen Tab [Tylenol] 650 mg PO Q4H PRN 10/17/21 [History] HYDROcodone/APAP 5-325MG [[place] 5-325] 1 tab PO TID PRN 10/17/21 [History] Insulin Lispro [humaLOG Kwikpen] See Protocol SQ QID 10/17/21 [History] Losartan [Cozaar] 100 mg PO DAILY@0910/17/21 [History] Metoprolol Tartrate [Lopressor] 75 mg PO BID@899,209910/17/21 [History] Nystatin 100,000 Unit/gm Powd [Mycostatin Powder] 1 applic TOPICAL BID 10/17/21 [History] Verapamil HCl [Verapamil ER] 180 mg PO HS@209910/17/21 [History] Warfarin [Coumadin] 1 mg PO MOWEFR@209910/17/21 [History] Warfarin [Coumadin] 1.5 mg PO SUTUTHSA@209910/17/21 [History] Follow up Appointment(s)/Referral(s): Farrah Doran III, MD [Primary Care Provider] - 1-2 days [facility] on the [place], [NON-STAFF] - As Needed Reji Frey MD [Medical Doctor] - 2 Weeks Activity/Diet/Wound Care/Special Instructions: Patient may weight bear to tolerance on operative leg with a walker, with assistance. Continue physical therapy for gait and balance training. Resume Coumadin for DVT prophylaxis. Daily dressing changes to right hip. Follow-up in the office in [address] Frey. Call the office with any questions or concerns, Discharge Disposition: TRANSFER TO SNF/ECF
[2021-10-21 15:09] VITALS: BP 105/44; PULSE 69; RESP 16; TEMP 97.7
[2021-10-21] MEDS: HYDROcodone/APAP 5-325MG 1 EACH TAB PO PRN (16:36)
[2021-10-21 17:12] LABS: Glucose,Whole Blood 176 mg/dL (75-99)
[2021-10-21] MEDS ORDERED: WARFARIN 1.5 MG TAB PO ONE (18:00)
== END 2021-10-21 17:48 | DRG 482 ==
LOC: EC 22:14 → 5NMEDONC 10-18 01:00 → 6NMEDSUR 10-18 10:19
PROVIDERS: ADMIT Orthopaedic Surgery; ATTEND Orthopaedic Surgery
PROC: 0QH706Z Insertion of Intramedullary Internal Fixation Device into Left Upper Femur, Open Approach (ICD-10-PCS; principal; 2021-10-19 16:45)
DX: S72.142A Displaced intertrochanteric fracture of left femur, initial encounter for closed fracture (principal); E11.9 Type 2 diabetes mellitus without complications; E78.5 Hyperlipidemia, unspecified; F03.90 Unspecified dementia, unspecified severity, without behavioral disturbance, psychotic disturbance, mood disturbance, and anxiety; G89.29 Other chronic pain; H91.90 Unspecified hearing loss, unspecified ear; I10 Essential (primary) hypertension; I25.10 Atherosclerotic heart disease of native coronary artery without angina pectoris; I27.20 Pulmonary hypertension, unspecified; I48.91 Unspecified atrial fibrillation; K22.70 Barrett's esophagus without dysplasia; N40.0 Benign prostatic hyperplasia without lower urinary tract symptoms; R29.6 Repeated falls; R79.1 Abnormal coagulation profile; Z79.01 Long term (current) use of anticoagulants; Z79.82 Long term (current) use of aspirin; Z95.1 Presence of aortocoronary bypass graft; Z87.891 Personal history of nicotine dependence; Z87.19 Personal history of other diseases of the digestive system; Z82.49 Family history of ischemic heart disease and other diseases of the circulatory system; Z80.7 Family history of other malignant neoplasms of lymphoid, hematopoietic and related tissues; Z79.899 Other long term (current) drug therapy; Z79.84 Long term (current) use of oral hypoglycemic drugs; E55.9 Vitamin D deficiency, unspecified; R26.2 Difficulty in walking, not elsewhere classified; M54.40 Lumbago with sciatica, unspecified side
CPT/HCPCS: 51702; 71045; 72192; 73501; 80048; 83735; 85025; 85027; 85610; 85730; 86850; 86900; 86901; 87635; 94640; 99285

== ENCOUNTER 2021-10-27 04:00 | Emergency (ER) | payer MEDICARE ==
[2021-10-27 04:25] VITALS: TEMP 97.6
--- NOTE | 2021-10-27 04:34 | ED ---
Altered Mental Status HPI - General Chief Complaint: Altered Mental Status Stated Complaint: Altered Mental Status Time Seen by Provider: 10/27/21 04:16 Source: EMS Mode of arrival: EMS Limitations: no limitations - History of Present Illness Initial Comments: Panda is a pleasant 85-year-old gentleman who is brought to the ER today from a custodial for evaluation of altered mental status. Per nursing report patient received his last pain meds at 9 PM, when he was observed it 3:30 this morning he had depressed respirations and was hard to arouse. EMS was called. EMS did note that he had pinpoint pupils and snoring respirations but would wake to physical stimuli could tell you his name but was otherwise somewhat confused and sleepy. - Related Data Home Medications Medication Instructions Recorded Confirmed Aspirin EC [Ecotrin Low Dose] 81 mg PO DAILY@0900 03/06/19 10/17/21 Omeprazole 20 mg PO DAILY@0900 03/06/19 10/17/21 Pravastatin Sodium [Pravachol] 40 mg PO HS@209903/06/19 10/17/21 hydroCHLOROthiazide 25 mg PO DAILY@0903/06/19 10/17/21 sitaGLIPtin PHOS/metFORMIN HCL 1 tab PO BID@0900,209903/06/19 10/17/21 [Janumet 50-500 mg Tablet] Cholecalciferol [Vitamin D3 (25 25 mcg PO DAILY@0900 09/22/21 10/17/21 Mcg = 1000 Iu)] Empagliflozin [Jardiance] 10 mg PO HS@209909/22/21 10/17/21 Acetaminophen Tab [Tylenol] 650 mg PO Q4H PRN 10/17/21 10/17/21 HYDROcodone/APAP 5-325MG [[place] 1 tab PO TID PRN 10/17/21 10/17/21 5-325] Insulin Lispro [humaLOG Kwikpen] See Protocol SQ QID 10/17/21 10/17/21 Losartan [Cozaar] 100 mg PO DAILY@0900 10/17/21 10/17/21 Metoprolol Tartrate [Lopressor] 75 mg PO BID@0900,2100 10/17/21 10/17/21 Nystatin 100,000 Unit/gm Powd 1 applic TOPICAL BID 10/17/21 10/17/21 [Mycostatin Powder] Verapamil HCl [Verapamil ER] 180 mg PO HS@2100 10/17/21 10/17/21 Warfarin [Coumadin] 1 mg PO MOWEFR@2100 10/17/21 10/17/21 Warfarin [Coumadin] 1.5 mg PO SUTUTHSA@2100 10/17/21 10/17/21 Previous Rx's Medication Instructions Recorded Ipratropium-Albuterol Nebulize 3 ml INHALATION RT-QID PRN ml 09/27/21 [Duoneb 0.5 mg-3 mg/3 ml Soln] Empagliflozin [Jardiance] 10 mg PO HS@2100 #0 10/21/21 HYDROcodone/APAP 5-325MG [[place] 1 each PO Q4HR PRN tab 10/21/21 5-325] Warfarin [Coumadin] 1.5 mg PO ONCE@1800 dose 10/21/21 Allergies Allergy/AdvReac Type Severity Reaction Status Date / Time No Known Allergies Allergy Verified 10/17/21 23:20 Review of Systems ROS Statement: Those systems with pertinent positive or pertinent negative responses have been documented in the HPI. ROS Other: All systems not noted in ROS Statement are negative. 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 Past Anesthesia/Blood Transfusion Reactions: No Reported Reaction Past Psychological History: No Psychological Hx Reported Smoking Status: Former smoker Past Alcohol Use History: Occasional Past Drug Use History: None Reported - Past Family History Father Family Medical History: Cancer Additional Family Medical History / Comment(s): Lymphoma Mother Family Medical History: Myocardial Infarction (NM) Additional Family Medical History / Comment(s): Mother had heart problems and a NM. She lived to be 83 yrs old. General Exam - General Exam Comments Initial Comments: Physical Exam GENERAL: Elderly, no acute distress HENT: Normocephalic, Atraumatic. EYES: Pupils 2mm bilaterally PULMONARY: Respiratory rate 8-10 Unlabored respirations. CARDIOVASCULAR: Bradycardia, irregular ABDOMEN: Non-distended SKIN: Well healing incision left hip : Casanova catheter in place NEUROLOGIC: Alert to person and place, aware of year MUSCULOSKELETAL: No acute injury apparent Limitations: no limitations Course Vital Signs 10/27/21 10/27/21 10/27/21 04:10 04:13 05:30 Temperature 97.6 F Pulse Rate 51 L 50 L Respiratory 8 L 18 16 Rate Blood Pressure 118/50 107/59 O2 Sat by Pulse 96 97 Oximetry Medical Decision Making - Medical Decision Making Patient was seen and evaluated, history is obtained from the EMS, physical exam is consistent with a narcotic overdose patient was treated with Narcan. Patient became more alert, patient is arrived at bedside states that he is at his [place]. Patient is still somewhat confused but has Alzheimer's dementia. Patient asking for water and heating pad for his neck. He was provided with both. Patient was observed for over an hour discharged home in stable condition. - EKG Data -: EKG Interpreted by Me EKG Comments: EKG was obtained at 4:06 AM rate is 49 rhythm is a narrow complex irregularly irregular consistent with an atrial fibrillation there are no acute ST elevati ons or depressions no evidence of ischemia or infarction. Disposition Clinical Impression: Narcotic overdose Disposition: HOME SELF-CARE Condition: Stable Additional Instructions: Panda's change in mental status seemed to be from overdose of narcotic medications, please review his medications and administration times and make adjustment as needed Is patient prescribed a controlled substance at d/c from ED?: No Referrals: Farrah Doran III, MD [Primary Care Provider] - 1-2 days
[2021-10-27] MEDS ORDERED: NALOXONE 0.4 MG/ML 1 ML VIAL IVP STA (05:14)
[2021-10-27 05:32] VITALS: BP 107/59; PULSE 50; RESP 16
== END 2021-10-27 06:48 | disposition home or self-care (01) ==
LOC: EC 04:00
DX: T40.601A Poisoning by unspecified narcotics, accidental (unintentional), initial encounter (principal); E78.5 Hyperlipidemia, unspecified; I48.91 Unspecified atrial fibrillation; I25.10 Atherosclerotic heart disease of native coronary artery without angina pectoris; E11.9 Type 2 diabetes mellitus without complications; I10 Essential (primary) hypertension; Z79.82 Long term (current) use of aspirin; Z79.4 Long term (current) use of insulin; Z79.01 Long term (current) use of anticoagulants; Z95.1 Presence of aortocoronary bypass graft; Z87.891 Personal history of nicotine dependence
CPT/HCPCS: 99285; 96374; 93005; J2310